=== PATIENT | male | born 1945 | race Caucasian/White ===

== ENCOUNTER 2017-07-13 07:47 | Inpatient (IN) | payer OTHER, MEDICARE ==
[~2017-07-13] VITALS: Ht 170.2 cm; Wt 63.5 kg
[~2017-07-13 07:47] MED LIST: CATAPRES0.2 MG PO; CLONIDINE HCL0.2 M1 PO; KEPPRA500 M1 PO; MAGNESIUM400 M1 PO; MELATONIN3 M4 PO; MULTIVITAMINS1 EAC9 PO; SEROQUEL50 M1 PO; TUMS PO; VITAMIN A10000 UNI1 PO
--- NOTE | 2017-07-13 07:55 | ED AMS/SEIZURE/WEAK/DIZZY ---
History of Present Illness General Chief Complaint: Seizure Stated Complaint: BIBA, ? SEIZURE Source: patient, old records, EMS Exam Limitations: clinical condition, poor historian Vital Signs & Intake/Output Vital Signs & Intake/Output Vital Signs Date Time Temp Pulse Resp B/P B/P Pulse O2 O2 Flow FiO2 Mean Ox Delivery Rate 07/15 1440 98.7 98 20 140/80 96 Room Air 07/15 1021 98.1 118 20 154/90 95 Room Air 07/15 0609 98.4 100 22 148/84 97 07/15 0216 98.1 89 22 156/89 93 07/14 2253 97.0 79 20 138/78 94 Room Air 07/14 2051 160/100 ED Intake and Output 07/15 0000 07/14 1200 Intake Total 1455 1120 Output Total 600 Balance 1455 520 Intake, IV 975 1000 Intake, Oral 480 120 Output, Urine 600 Allergies Coded Allergies: No Known Allergies (07/13/17) Reconcile Medications Clonidine (Catapres) 0.2 MG TABLET 0.2 MG PO BID HYPERTENSION (Reported) Famotidine (Pepcid AC) 10 MG TABLET PT UNSURE/ ?GI (Reported) Levetiracetam (Keppra) 500 MG TABLET 1 TAB PO BID SEIZURE .. Magnesium Oxide (Magnesium) (Unknown Strength) CAPSULE (Unknown Dose) PO DAILY SUPPLEMENT (Reported) Melatonin 3 MG TABLET 1 TAB PO QPM SLEEP (Reported) Quetiapine Fumarate (Seroquel) 50 MG TABLET 1 TAB PO BID PSYCH (Reported) [TUMS] 1 TAB PO BID GI (Reported) Triage Nurses Notes Reviewed? yes Onset: Abrupt Duration: minute(s): (30) Timing: single episode today Injury Environment: home Severity: moderate, severe No Modifying Factors: none Associated Symptoms: confusion, tremors HPI: This is a 72-year-old male extremely hard of hearing with documented history of alcohol withdrawal seizures, previously on keppra who presents with questionable seizure from home by EMS. According to EMS thinks he might of had a seizure. Patient states he doesn't really know where he has been examined because in Hospital he is unsure if he had a seizure. Patient doesn't know if he has history of seizures. He is unable to recall his last drink but states that he does drink. Past History Travel History Traveled to [place] past 21 day No Medical History Any Pertinent Medical History? see below for history Neurological: seizure (alcohol withdrawal related) Cardiovascular: hypertension Psychiatric: alcohol dependence History of MRSA: No History of VRE: No History of CDIFF: No Surgical History Surgical History: non-contributory Psychosocial History What is your primary language Czech Tobacco Use: Never used ETOH Use: alcoholic Family History Hx Contributory? No Review of Systems Review of Systems Constitutional: Reports: see HPI (SEIZURE, CONFUSED). Physical Exam Physical Exam General Appearance: well developed/nourished, alert, awake, anxious, moderate distress, severe distress, DISHEVELED Head: atraumatic Eyes: Bilateral: normal appearance, PERRL, EOMI. Ears, Nose, Throat: HARD OF HEARING Neck: normal inspection, supple, full range of motion Respiratory: normal breath sounds, chest non-tender, no respiratory distress Cardiovascular: tachycardia Peripheral Pulses: 2+ radial (R), 2+ radial (L) Gastrointestinal: normal bowel sounds, soft, non-tender Back: normal inspection, normal range of motion, vertebral tenderness Extremities: normal range of motion, VISIBLE HAND TREMORS Neurologic/Psych: no motor/sensory deficits, awake, alert, ORIENTED X 2 Skin: intact, normal color, warm/dry Core Measures ACS in differential dx? No CVA/TIA Diagnosis No Sepsis Present: No Sepsis Focused Exam Completed? No Progress Differential Diagnosis: ALCOHOL ABUSE, ALCOHOL WITHDRAWAL, SEIZURE, DT'S, [place], MEDICATION NON COMPLIANCE Plan of Care: Orders Procedure Date/time Status Patient Safety Monitor 07/15 1700 Active Restraint- Behavioral (Order) 07/15 1648 Active Restraint- Behavioral (Order) 07/15 1630 Active Restraint- Behavioral (Order) 07/15 1230 Active Restraint- Behavioral (Order) 07/15 0844 Active Restraint- Behavioral (Order) 07/15 UNK Active PSYCHIATRIC CONSULT 07/15 UNK Active Patient Safety Monitor 07/14 UNK Active Restraint- Medical 07/14 UNK Complete Current Medications Sig/Jessica Start time Last Medication Dose Stop Time Status Admin Lorazepam 1 MG Q8 07/15 1400 AC 07/15 (Ativan) 1403 Famotidine 20 MG DAILY 07/14 1000 AC 07/14 (Pepcid) 1056 Folic Acid 1 MG DAILY 07/14 1000 AC 07/15 (Folic Acid) 1120 Multivitamins 1 TAB DAILY 07/14 1000 AC 07/14 (Theragran Vitamins) 1057 Quetiapine Fumarate 50 MG BID 07/14 1000 AC 07/15 (SEROquel) 1120 Thiamine HCl 100 MG DAILY 07/14 1000 AC 07/14 (Vitamin B1) 1058 Clonidine 0.2 MG BID 07/13 2200 AC 07/15 (Catapres) 1117 Levetiracetam 500 MG BID 07/13 2200 AC 07/15 (Keppra) 1120 Enoxaparin Sodium 40 MG DAILY 07/13 1348 AC 07/15 (Lovenox) 1120 Acetaminophen 650 MG Q6P PRN 07/13 1345 AC 07/13 (Tylenol) 2119 Dextrose/Sodium 1,000 ML .Q8H 07/13 1345 AC 07/15 Chloride 1325 (D5-Normal Saline) Lorazepam 2 MG Q2P PRN 07/13 1115 AC (Ativan) Lorazepam 1 MG Q2P PRN 07/13 1115 AC (Ativan) Laboratory Tests 07/15/17 0736: CBC w Diff NO MAN DIFF REQ, RBC 4.36 L, MCV 93.2, MCH 31.3 H, MCHC 33.6, RDW 13.4, MPV 8.9, Gran % 71.5, Lymphocytes % 18.6 L, Monocytes % 7.1, Eosinophils % 2.4, Basophils % 0.4, Absolute Granulocytes 6.3, Absolute Lymphocytes 1.6, Absolute Monocytes 0.6, Absolute Eosinophils 0.2, Absolute Basophils 0 IV KEPPRA ADMINISTERED. ATIVAN, BANANA BAG. PATIETN WILL REQUIRE NEUROLOGY CONSULTATION, MONITOR FOR ALCOHOL WITHDRAWAL. D/W HOSPITAL FOR ADMISSION. Diagnostic Imaging: Viewed by Me: Radiology Read, CT Scan. Discussed w/RAD: Radiology Read, CT Scan. Radiology Impression: PATIENT: CYNDI NIXON PRESENT AGE: 72 PATIENT ACCOUNT NO: [id number] : 44 LOCATION: [facility] ORDERING PHYSICIAN: Charisma Saldaña MD SERVICE DATE: 07/13/17 EXAM TYPE: CAT - CT HEAD WO IV CONTRAST EXAMINATION: CT HEAD WITHOUT CONTRAST CLINICAL INFORMATION: Seizure, confused, rule out bleed. COMPARISON: 02/21/2017 TECHNIQUE : Contiguous axial imaging was performed from the skull base to vertex without intravenous administration of contrast. DLP: 642.74 mGy-cm FINDINGS: There is no evidence of acute intracranial hemorrhage or territorial infarction. No abnormal mass effect or midline shift is seen. Segura to white matter differentiation is well preserved. No extra-axial fluid collections are identified. The ventricles are normal in size. There is low attenuation in the subcortical and periventricular regions in keeping with small vessel ischemic change. The osseous structures and soft tissues are normal. The mastoid air cells and visualized portions of the paranasal sinuses are well aerated. Mild mucosal thickening is seen in the ethmoid and maxillary sinuses. IMPRESSION: No acute intracranial pathology. No interval change. DICTATED BY: Claudy Wu MD DATE/ TIME DICTATED:07/13/17901 PROPERTY ANALYST:CONRAD DATE/TIME TRANSCRIBED: 07/13/17901 CONFIDENTIAL, DO NOT COPY WITHOUT APPROPRIATE AUTHORIZATION. < Electronically signed in Other Vendor System> SIGNED BY: Claudy Wu MD 07/13/17912 CXR Impression: PATIENT: CYNDI NIXON PRESENT AGE: 72 PATIENT ACCOUNT NO: [id number] : 44 LOCATION: [facility] ORDERING PHYSICIAN: Charisma Saldaña MD SERVICE DATE: 07/13/17 EXAM TYPE: RAD - XRY -PORTABLE CHEST XRAY EXAMINATION: XR PORTABLE CHEST CLINICAL INFORMATION: Seizure COMPARISON: 02/21/2017 TECHNIQUE: Portable frontal view of the chest was obtained. FINDINGS: No significant abnormality is noted involving the heart, lungs, mediastinum, bony thorax or soft tissues. IMPRESSION: Unremarkable examination. DICTATED BY: Claudy Wu MD DATE/TIME DICTATED:07/13/17910 PROPERTY ANALYST:CONRAD DATE/TIME TRANSCRIBED:07/13/17910 CONFIDENTIAL, DO NOT COPY WITHOUT APPROPRIATE AUTHORIZATION. <Electronically signed in Other Vendor System> SIGNED BY: Claudy Wu MD 07/13/17914 Initial ED EKG: NSR Rhythm Strip: sinus tachycardia Departure Departure Time of Disposition: 1037 Disposition: STILL A PATIENT Condition: Stable Clinical Impression Primary Impression: Seizure Secondary Impressions: Lactic acidosis Referrals: Lalo Salas MD (PCP/Family) Departure Forms: Customer Survey General Discharge Information Admission Note Spoke With: Tigre Slaughter MD Documentation of Exam: Documentation of any treatments & extenuating circumstances including Concerns Regarding Discharge (functional status, medication knowledge or non-compliance, living conditions, etc.) that warrant an admission rather than observation: [ SEIZURE PRECAUTIONS, CIWA MONITORING, ATIVAN TAPER, IV KEPPRA, F/U KEPPRA LEVEL, CONSIDER NEURO CONSULTATION]
[2017-07-13 08:22] LABS: ABSOLUTE BASOPHIL COUNT 0 /CUMM (0.0-0.2); ABSOLUTE EOSINOPHIL COUNT 0 /CUMM (0.0-0.7); ABSOLUTE GRANULOCYTE CT 11.5 /CUMM (1.4-6.5); ABSOLUTE LYMPH COUNT 0.7 /CUMM (1.2-3.4); ABSOLUTE MONOCYTE COUNT 0.6 /CUMM (0.10-0.60); BASOPHIL % 0.1 % (0.0-2.0); EOSINOPHIL % 0.3 % (0-5); GRANULOCYTE % 89.9 % (42.2-75.2); HEMATOCRIT 44.6 % (42-52); MEAN CORPUSCULAR HGB 30.9 PG (27.0-31.0); MEAN CORPUSCULAR VOLUME 93.9 FL (80.0-94.0); MEAN PLATELET VOLUME 8.9 FL (7.4-10.4); PLATELET COUNT 158 /CUMM (130-400); RBC DISTRIBUTION WIDTH 13.5 % (11.5-14.5); RED BLOOD CELL CT 4.75 /CUMM (4.70-6.10); WHITE BLOOD CELL COUNT 12.8 /CUMM (4.8-10.8)
[2017-07-13 08:24] LABS: PTT 28 SEC (25-37)
[2017-07-13] MEDS ORDERED: PEPCID AC10 M2 (08:49)
--- NOTE | 2017-07-13 09:13 | CT SCAN REPORT ---
EXAMINATION: CT HEAD WITHOUT CONTRAST CLINICAL INFORMATION: Seizure, confused, rule out bleed. COMPARISON: 02/21/2017 TECHNIQUE: Contiguous axial imaging was performed from the skull base to vertex without intravenous administration of contrast. DLP: 642.74 mGy-cm FINDINGS: There is no evidence of acute intracranial hemorrhage or territorial infarction. No abnormal mass effect or midline shift is seen. Segura to white matter differentiation is well preserved. No extra-axial fluid collections are identified. The ventricles are normal in size. There is low attenuation in the subcortical and periventricular regions in keeping with small vessel ischemic change. The osseous structures and soft tissues are normal. The mastoid air cells and visualized portions of the paranasal sinuses are well aerated. Mild mucosal thickening is seen in the ethmoid and maxillary sinuses. IMPRESSION: No acute intracranial pathology. No interval change.
--- NOTE | 2017-07-13 09:15 | RADIOLOGY REPORT ---
EXAMINATION: XR PORTABLE CHEST CLINICAL INFORMATION: Seizure COMPARISON: 02/21/2017 TECHNIQUE: Portable frontal view of the chest was obtained. FINDINGS: No significant abnormality is noted involving the heart, lungs, mediastinum, bony thorax or soft tissues. IMPRESSION: Unremarkable examination.
[2017-07-13 10:26] VITALS: BP 151/77
--- NOTE | 2017-07-13 11:15 | History & Physical ---
See Addendum General Information and HPI MD Statement: I have seen and personally examined CYNDI NIXON and documented this H&P. The patient is a 72 year old M who presented with a patient stated chief complaint of [Seizures, AMS]. Source of Information: old records, ER Exam Limitations: unable to give history, confusion History of Present Illness: 72 years old male with past medical history of seizure, HTN, poor hearing, and alcoholism who was brought in by ambulance after an episode of seizure at home. This episode was witnessed by his . He has a hx of recurrent seizures attributed to ETOH in the past. Last episode that required hospitalization was in jan 2017. Unclear if patient has had any other episodes in between. Patient is altered and cannot provide a hx and is not with him at the time of this interview. It is unclear if he struck his head during the seizure or if he had loss of conciousness or loss of bladder/bowel function or foaming at the mouth at the time of the seizure. He is unable to recall his last drink but states that he does drink according to ER notes. Allergies/Medications Allergies: Coded Allergies: No Known Allergies (07/13/17) Home Med list Clonidine (Catapres) 0.2 MG TABLET 0.2 MG PO BID HYPERTENSION (Reported) Famotidine (Pepcid AC) 10 MG TABLET PT UNSURE/ ?GI (Reported) Levetiracetam (Keppra) 500 MG TABLET 1 TAB PO BID SEIZURE .. Magnesium Oxide (Magnesium) (Unknown Strength) CAPSULE (Unknown Dose) PO DAILY SUPPLEMENT (Reported) Melatonin 3 MG TABLET 1 TAB PO QPM SLEEP (Reported) Quetiapine Fumarate (Seroquel) 50 MG TABLET 1 TAB PO BID PSYCH (Reported) [TUMS] 1 TAB PO BID GI (Reported) Compliance With Home Meds: UNKNOWN Past History Travel History Traveled to [place] past 21 day No Medical History Neurological: seizure (alcohol withdrawal related) Cardiovascular: hypertension Psychiatric: alcohol dependence History of MRSA: No History of VRE: No History of CDIFF: No Surgical History Surgical History: non-contributory Past Family/Social History Psychosocial History ETOH Use: alcoholic Review of Systems Review of Systems Constitutional: Reports: no symptoms. Exam & Diagnostic Data Last 24 Hrs of Vital Signs/I&O Vital Signs Date Time Temp Pulse Resp B/P B/P Pulse O2 O2 Flow FiO2 Mean Ox Delivery Rate 02/11 1205 98.9 105 16 153/73 07/13 1203 98.9 105 16 153/73 91 Room Air 07/13 1027 98.6 76 15 151/77 98 Room Air Room Air 07/13 1026 98.6 76 20 151/77 07/13 0925 98.1 75 18 151/101 99 Room Air 07/13 0826 Room Air Room Air 07/13 0754 98.3 106 15 189/93 96 Room Air Room Air Intake & Output 07/13 1600 07/13 0800 07/13 0000 Intake Total Output Total Balance Patient 170 lb Weight Weight Estimated Measurement Method Assessment/Plan Assessment: 72 years old male with past medical history of seizure, HTN and alcoholism who was brought in by ambulance after an episode of seizure. This episode was witnessed by his . Last episode that required hospitalization was in jan 2017. Unclear if patient has had any other episodes in between. Also patient is altered and cannot proved a hx and is not with him at the time of the interview. It is unclear if he had loss of conciousness or loss of bladder/bowel function or foaming at the mouth. Assessment- Possible Alcohol related seizures r/o seizure disorder Lactic acidosis HTN Plan Admit to [facility] Resume his impt home meds including Keppra; he got a dose of IV keppra 1000mg in the ED Start Banana bag IV hydration with D51/2 NS at 125cc/hr Recheck lactic acid every 3 hrs till resolved CIWA protocol and ativan per CIWA MVI, thiamine, folate in am once patient is more awake and able to tolerate orally Seizure precautions at all times Obtain Neuro consult-called to Dr. Valentin for the AM Check EEG Social work consult in am Obtain records from PCP-Dr. Alicia about etiology of seizures Psych consult in am DVT ppx with Lovenox Full Code-Confirm code status with family in am; patient not able to tell what his wishes are at this time As Ranked By This Provider Problem List: 1. Seizure 2. Lactic acidosis Core Measures/Misc (02/16) Acute Coronary Syndrome ACS Diagnosis: No Congestive Heart Failure Congestive Heart Failure Diagnosis No Cerebrovascular Accident CVA/TIA Diagnosis: No VTE (View Protocol) VTE Risk Factors Age>40 No Mechanical VTE Prophylaxis d/t N/A MechProphylax Ordered No VTE Pharm Prophylaxis d/t NA PharmProphylax ordered Sepsis (View protocol) Sepsis Present: No Resident Review Statement Resident Statement: examined this patient Other Findings: see HPI
[2017-07-13 12:05] VITALS: BP 153/73
[2017-07-13 14:50] VITALS: BP 144/80
[2017-07-13 23:22] VITALS: BP 142/98
--- NOTE | 2017-07-14 00:52 | Admission Certification ---
Admission Certification Certification Statement - As attending physician, I certify that at the time of - admission, based on clinical presentation, severity of - symptoms, need for further diagnostic testing and - therapeutic interventions, and risk of adverse outcomes - without in-hospital treatment, in my clinical assessment, - this patient requires an acute hospital stay for a minimum - of two nights or longer. I have also considered psychsocial - factors such as support system, advanced age, financial - issues, cognitive issues, and failed out-patient treatments, - past re-admission history, safety of patient, and lack of - compliance as applicable. Specific rationale supporting this admission is: The patient presents s/p seizure at home that was presumed to be alcohol withdrawal related. Needs admit to give anti-seizure meds (Keppra, Ativan), detox protocol/CIWA, Social Service consult, seizure precautions, EEG, Neuro consult.
[2017-07-14 06:59] VITALS: BP 150/90
[2017-07-14 08:12] LABS: ABSOLUTE BASOPHIL COUNT 0 /CUMM (0.0-0.2); ABSOLUTE EOSINOPHIL COUNT 0.1 /CUMM (0.0-0.7); ABSOLUTE GRANULOCYTE CT 8.9 /CUMM (1.4-6.5); ABSOLUTE LYMPH COUNT 1.5 /CUMM (1.2-3.4); ABSOLUTE MONOCYTE COUNT 0.8 /CUMM (0.10-0.60); BASOPHIL % 0.1 % (0.0-2.0); EOSINOPHIL % 0.7 % (0-5); GRANULOCYTE % 78.3 % (42.2-75.2); HEMATOCRIT 43.3 % (42-52); MEAN CORPUSCULAR HGB CONC 33.1 G/DL (33.0-37.0); MEAN CORPUSCULAR VOLUME 93.8 FL (80.0-94.0); MEAN PLATELET VOLUME 9.6 FL (7.4-10.4); PLATELET COUNT 125 /CUMM (130-400); RBC DISTRIBUTION WIDTH 13.6 % (11.5-14.5); RED BLOOD CELL CT 4.62 /CUMM (4.70-6.10); WHITE BLOOD CELL COUNT 11.3 /CUMM (4.8-10.8)
--- NOTE | 2017-07-14 08:29 | PN- Housestaff ---
DonaldLakshmi Fletcher Young 07/14/17 0829: Subjective Follow-up For: Seizure Altered mental status Subjective: No overnight event. Patient had a 1-1 sitter at bedside. Patient is awake and alert but not following commands or answering questions in a meaningful manner. Review of Systems Constitutional: Reports: see HPI. Objective Last 24 Hrs of Vital Signs/I&O Vital Signs Date Time Temp Pulse Resp B/P B/P Pulse O2 O2 Flow FiO2 Mean Ox Delivery Rate 07/14 0659 97.4 86 18 150/90 97 Room Air 07/13 2322 100.6 103 20 142/98 93 Room Air 07/13 2304 98.1 07/13 2118 100.6 07/13 211 103 142/98 07/13 1450 98.2 87 20 144/80 94 Room Air 07/13 1205 98.9 105 16 153/73 07/13 1203 98.9 105 16 153/73 91 Room Air 07/13 1027 98.6 76 15 151/77 98 Room Air Room Air 07/13 1026 98.6 76 20 151/77 Intake & Output 07/14 1600 07/14 0800 07/14 0000 Intake Total 1120 120 Output Total 600 Balance 520 120 Intake, IV 1000 Intake, Oral 120 120 Output, Urine 600 Physical Exam General Appearance: Alert, No Acute Distress Current Medications: Current Medications Sig/Jessica Start time Last Medication Dose Route Stop Time Status Admin Acetaminophen 650 MG Q6P PRN 07/13 1345 AC 07/13 PO 2119 Clonidine 0.2 MG BID 07/13 2200 AC 07/13 PO 2119 Cyanocobalamin/ 1 BAG ONCE ONE 07/13 1345 CAN Thiamine/Pyridoxine IV 07/13 2144 Dextrose/Water 1,000 ML Cyanocobalamin/ 1 BAG ONCE ONE 07/13 0815 DC 07/13 Thiamine/Pyridoxine IV 07/13 1614 0900 Sodium Chloride 1,000 ML Dextrose/Sodium 1,000 ML .Q8H 07/13 1345 AC 07/14 Chloride IV 0525 Enoxaparin Sodium 40 MG DAILY 07/13 1348 AC 07/13 SC 1730 Famotidine 20 MG DAILY 07/14 1000 AC PO Folic Acid 1 MG DAILY 07/14 1000 DC PO 07/16 1001 Folic Acid 1 MG DAILY 07/14 1000 AC PO Levetiracetam 500 MG BID 07/13 2200 AC 07/13 PO 2117 Levetiracetam 1,000 MG ONCE ONE 07/13 1045 DC 07/13 N/A 1 UNIT IV 07/13 1059 1102 Lorazepam 1 MG Q6H 07/16 0000 DC PO 07/16 1201 Lorazepam 1.5 MG Q12H 07/15 0600 DC PO 07/15 1801 Lorazepam 1 MG Q12H 07/15 0000 DC PO 07/15 1201 Lorazepam 2 MG 0800 07/14 0800 CAN PO Lorazepam 1.5 MG Q6 07/14 0600 CAN PO 07/14 1801 Lorazepam 2 MG Q6PRN PRN 07/13 1715 DC IV Lorazepam 0 .STK-MED ONE 07/13 1305 DC .ROUTE Lorazepam 0 .STK-MED ONE 07/13 1216 DC .ROUTE Lorazepam 2 MG ONE ONE 07/13 1215 DC 07/13 IV 07/13 1216 1303 Lorazepam 2 MG Q6 07/13 1200 AC 07/14 PO 0525 Lorazepam 0 .STK-MED ONE 07/13 1119 DC PO Lorazepam 2 MG ONCE ONE 07/13 1115 DC PO 07/13 1116 Lorazepam 2 MG Q2P PRN 07/13 1115 AC IV Lorazepam 1 MG Q2P PRN 07/13 1115 AC IV Melatonin 3 MG QPM 07/13 2200 CAN PO Multivitamins 1 TAB DAILY 07/14 1000 DC PO Multivitamins 1 TAB DAILY 07/14 1000 AC PO Quetiapine Fumarate 50 MG BID 07/14 1000 AC PO Quetiapine Fumarate 50 MG BID 07/13 2200 DC PO Sodium Chloride 1,000 ML BOLUS ONE 07/13 0845 DC 07/13 IV 07/13 0944 0900 Thiamine HCl 100 MG DAILY 07/14 1000 DC PO 07/16 1001 Thiamine HCl 100 MG DAILY 07/14 1000 AC PO Last 24 Hrs of Lab/Cecilio Results Last 24 Hrs of Labs/Mics: Laboratory Tests 07/14/17 0630: Anion Gap 10, Estimated GFR > 60, BUN/Creatinine Ratio 11.3, CBC w Diff NO MAN DIFF REQ, RBC 4.62 L, MCV 93.8, MCH 31.0, MCHC 33.1, RDW 13.6, MPV 9.6, Gran % 78.3 H, Lymphocytes % 13.7 L, Monocytes % 7.2, Eosinophils % 0.7, Basophils % 0.1, Absolute Granulocytes 8.9 H, Absolute Lymphocytes 1.5, Absolute Monocytes 0.8 H, Absolute Eosinophils 0.1, Absolute Basophils 0 07/13/17 1830: Lactic Acid 1.6 07/13/17 1400: Lactic Acid Cancelled 07/13/17 1101: Urine Opiates Screen < 100.00, Methadone Screen < 40, Barbiturate Screen < 60, Ur Phencyclidine Scrn < 6.00, Amphetamines Screen < 100, U Benzodiazepines Scrn < 85, Urine Cocaine Screen < 50, Urine Cannabis Screen < 5.00, Urine Color YEL, Urine Clarity CLEAR, Urine pH 7.0, Ur Specific [place] 1.020, Urine Protein NEG, Urine Ketones NEG, Urine Nitrite NEG, Urine Bilirubin NEG, Urine Urobilinogen 0.2, Ur Leukocyte Esterase NEG, Ur Microscopic EXAM NOT REQUIRED, Urine Hemoglobin NEG, Urine Glucose NEG 07/13/17 1057: Lactic Acid 2.8 H, Levetiracetam Pending Assessment/Plan Assessment: Mr. Jiang is a 72 yo male with h/o ?seizures (?alcohol related), HTN, and EtoH abuse who was BIBA to [facility] after a witnessed seizure event at home by , with uncertainty of last drink as sami was a poor historian. However, alcohol level had been negative on admission. Patient denied headache, chest pain, dyspnea, abdominal pain on admission. Patient was admitted to [facility] in 01/2017 for similar seizure event and was sent home on Keppra. ER Course: VS: T 98.3, P 106-76, R 15, BP 189/93-151/77, PO 98% RA Physical exam unremarkable except Neuro: poor historian, oriented to place, no focal neuro deficits, however gait unsteady when attempting to ambulate to bathroom. Patient was admitted to general medicine for following management: #S/P Seizure w/ unlcear etiology: PCP is Dr. Salas. Patient had left AMA from last admission, questionably compliance with Keppra after last discharge. - Continue Keppra 500mg bid. Monitor keppra level - Pending Neuro consult - Pending EEG per Neuro - Fall/Seizure precautions. #EtOH Abuse- unclear amount of alcohol the patient drinks. ED indicated that he had been drinking, however could not recall his last drink. - Continue CIWA's protocol - Continue Ativan 2mg q6 PO. - Continue MVI, Folate, Thiamine protocol. - Pending Social Service consult. #HTN- With patient's current mental status, clonidine incompliance and possible clonidine withdrawal could not beunclear why patient is listed as being on Clonidine for BP control. Also unclear if the patient has been compliant. If he has been compliant would be concerned regarding potential clonidine withdrawal. - Continue Clonidine for now pending confirmation as below - Check pharmacy and Dr. Salas's records regarding use of this prescription as well as Keppra use. - Consider alternative anti-hypertensive as needed DVT PPX Lovenox + ALPS NPO Full Code Problem List: 1. Seizure Pain Ratin Pain Location: see AP Pain Goal: Remain pain free Pain Plan: see AP Tomorrow's Labs & Rationales: Jonah Freedman 07/14/17 1359: Attending MD Review Statement Attending Statement Attending MD Statement: examined this patient, discuss w/resident/PA/COPY SUPERVISOR, agreed w/resident/PA/COPY SUPERVISOR, discussed with family, reviewed EMR data (avail), discussed with nursing, discussed with case mgmt, reviewed images, amended to note Attending Assessment/Plan: Patient seen/examined bedside. Patient is post ictal and delirious. 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 Patient needs to follow up neuolrogy as outpatient. SW consult for insurance issues. cont current care..
--- NOTE | 2017-07-14 10:25 | Cons- Neurology ---
General Information and HPI Consulting Request Date of Consult: 07/14/17 Requested By: Jonah Monge MD Reason for Consult: ?seizures Source of Information: family, EMR Exam Limitations: unable to give history, not alert/orientated History of Present Illness: This is a 72-year-old man whose called 911 yesterday for the following reason: She states that yesterday when she walked into the living room he was sitting on the couch, then stood up and started heading toward the bathroom, but accidentally entered one of the bedrooms, then turned around and got to the bathroom. While he was in the air she heard a loud noise as if the toilet seat was falling abruptly. When she went in to the bathroom he was sitting on the toilet staring and verbally unresponsive. He was breathing heavily and started falling to one side with his legs extended outward. She lowered him to the floor and he then appeared to be "sleeping". At that point she called 911. Regarding the question of alcohol withdrawal, she states that other than friends occasionally "snake him out for drink ", there has been no heavy alcohol use to her knowledge for the past 4-5 years. Back then he was drinking about 1-2 gallons of vodka per week. At that 0.45 years ago he was admitted to [facility] with alcohol withdrawal and convulsive seizures, and was subsequently transferred to [place]. In September 2016 he was hospitalized at [place] with a confusional episode and underwent continuous EEG monitoring (results below). He was discharged on lacosamide 100 mg twice a day. He did not follow up at the [place] epilepsy clinic. According to his , she has limited mobility and has difficulty getting him to [place]. She states that the lacosamide was not renewed when they ran out of refills. Then in January 2017, he had a brief admission to [place] with another confusional episode. At that point he was placed on levetiracetam 500 mg twice a day. Again, the medication was not renewed when it was up for refill and he did not follow-up with a neurologist. His primary care physician is Dr. Salas. Allergies/Medications Allergies: Coded Allergies: No Known Allergies (07/13/17) Home Med List: Clonidine (Catapres) 0.2 MG TABLET 0.2 MG PO BID HYPERTENSION (Reported) Famotidine (Pepcid AC) 10 MG TABLET PT UNSURE/ ?GI (Reported) Levetiracetam (Keppra) 500 MG TABLET 1 TAB PO BID SEIZURE .. Magnesium Oxide (Magnesium) (Unknown Strength) CAPSULE (Unknown Dose) PO DAILY SUPPLEMENT (Reported) Melatonin 3 MG TABLET 1 TAB PO QPM SLEEP (Reported) Quetiapine Fumarate (Seroquel) 50 MG TABLET 1 TAB PO BID PSYCH (Reported) [TUMS] 1 TAB PO BID GI (Reported) Current Medications: Current Medications Sig/Jessica Start time Last Medication Dose Route Stop Time Status Admin Acetaminophen 650 MG Q6P PRN 07/13 1345 AC 07/13 PO 211 Clonidine 0.2 MG BID 07/13 2200 AC 07/13 PO 211 Cyanocobalamin/ 1 BAG ONCE ONE 07/13 1345 CAN Thiamine/Pyridoxine IV 07/13 2144 Dextrose/Water 1,000 ML Cyanocobalamin/ 1 BAG ONCE ONE 07/13 0815 DC 07/13 Thiamine/Pyridoxine IV 07/13 1614 0900 Sodium Chloride 1,000 ML Dextrose/Sodium 1,000 ML .Q8H 07/13 1345 AC 07/14 Chloride IV 0525 Enoxaparin Sodium 40 MG DAILY 07/13 1348 AC 07/13 SC 1730 Famotidine 20 MG DAILY 07/14 1000 AC PO Folic Acid 1 MG DAILY 07/14 1000 DC PO 07/16 1001 Folic Acid 1 MG DAILY 07/14 1000 AC PO Levetiracetam 500 MG BID 07/13 2200 AC 07/13 PO 2117 Levetiracetam 1,000 MG ONCE ONE 07/13 1045 DC 07/13 N/A 1 UNIT IV 07/13 1059 1102 Lorazepam 1 MG Q6H 07/16 0000 DC PO 07/16 1201 Lorazepam 1.5 MG Q12H 07/15 0600 DC PO 07/15 1801 Lorazepam 1 MG Q12H 07/15 0000 DC PO 07/15 1201 Lorazepam 2 MG 0800 07/14 0800 CAN PO Lorazepam 1.5 MG Q6 07/14 0600 CAN PO 07/14 1801 Lorazepam 2 MG Q6PRN PRN 07/13 1715 DC IV Lorazepam 0 .STK-MED ONE 07/13 1305 DC .ROUTE Lorazepam 0 .STK-MED ONE 07/13 1216 DC .ROUTE Lorazepam 2 MG ONE ONE 07/13 1215 DC 07/13 IV 07/13 1216 1303 Lorazepam 2 MG Q6 07/13 1200 AC 07/14 PO 0525 Lorazepam 0 .STK-MED ONE 07/13 1119 DC PO Lorazepam 2 MG ONCE ONE 07/13 1115 DC PO 07/13 1116 Lorazepam 2 MG Q2P PRN 07/13 1115 AC IV Lorazepam 1 MG Q2P PRN 07/13 1115 AC IV Melatonin 3 MG QPM 07/13 2200 CAN PO Multivitamins 1 TAB DAILY 07/14 1000 DC PO Multivitamins 1 TAB DAILY 07/14 1000 AC PO Quetiapine Fumarate 50 MG BID 07/14 1000 AC PO Quetiapine Fumarate 50 MG BID 07/13 2200 DC PO Thiamine HCl 100 MG DAILY 07/14 1000 DC PO 07/16 1001 Thiamine HCl 100 MG DAILY 07/14 1000 AC PO Review of Systems Review of Systems: Unobtainable from the patient. He is currently in a vest restraint and on one- to-one supervision. He denies headache, dizziness, visual changes, chest pain, palpitations, shortness of breath. He is hearing impaired but does not yet have hearing aids. He states he wears glasses but does not have them with him. Past History Travel History Traveled to [place] past 21 day No Medical History Blood Transfusion Hx: No Neurological: seizure (alcohol withdrawal related) EENT: [place] Cardiovascular: hypertension Respiratory: NONE Gastrointestinal: NONE Hepatic: NONE Renal: NONE Musculoskeletal: NONE Psychiatric: alcohol dependence Endocrine: NONE Blood Disorders: NONE Cancer(s): NONE TRAVELING SALES REPRESENTATIVE/Reproductive: NONE Surgical History Surgical History: non-contributory Psychosocial History Where Do You Live? Home Services at Home: None Smoking Status: Never Smoked ETOH Use: alcoholic (last drink January 2017 per ) Employment History Employment: Retired Profession/Employer: worked in various department stores Exam & Diagnostic Data Vital Signs and I&O Vital Signs Date Time Temp Pulse Resp B/P B/P Pulse O2 O2 Flow FiO2 Mean Ox Delivery Rate 07/14 658 97.4 86 18 150/90 97 Room Air 07/13 2321 100.6 103 20 142/98 93 Room Air 07/13 2303 98.1 07/13 2118 100.6 02/11 2119 103 142/98 07/13 1450 98.2 87 20 144/80 94 Room Air 07/13 1205 98.9 105 16 153/73 07/13 1203 98.9 105 16 153/73 91 Room Air 07/13 1027 98.6 76 15 151/77 98 Room Air Room Air 07/13 1026 98.6 76 20 151/77 Intake & Output 07/14 1600 07/14 0800 07/14 0000 Intake Total 1120 120 Output Total 600 Balance 520 120 Intake, IV 1000 Intake, Oral 120 120 Output, Urine 600 Physical Exam: PHYSICAL EXAMINATION: nl = normal NT or blank = not tested GENERAL Appearance: Unkempt appearance, pleasant, cooperative Head: nl Eyes: nl ENT: nl Neck: nl Carotids: nl Lungs: nl Heart: nl Extremities: nl NEUROLOGIC MENTAL STATUS Level of consciousness: nl Orientation: states year "1800, does not know the date date or month; knows "hospital", but not which one he is in. He cannot recall the name of the current [place] president. Attention / Concentration: Impaired Fund of Knowledge: nl Speech / Language: Makes occasional phonemic paraphasic errors in conversation, when reading, and when naming objects NEUROLOGIC CRANIAL NERVES I: Olfaction: NT II: Optic nerves: nl Visual hcanel: nl III: Pupils: nl Levator palpebrae: nl III, IV, : Ocular alignment: nl Extraocular motility: nl Pursuits/ saccades: nl V: Facial sensation: nl Masseter/Pterygoids: nl VII: Facial Motor: nl VIII: Hearing (finger rub): nl IX, X: Uvula and palate: nl XI: SCM, Upper trap.: nl XII: Tongue: nl MOTOR / NEUROMUSCULAR Bulk: nl Tone: nl Strength: nl Rapid alternating movements: nl Fine motor movements: nl Abnormal / involuntary movements: none CEREBELLAR / COORDINATION: intact SENSATION: intact to light touch and vibration DTR's symmetrically trace to absent PLANTARS: flexor GAIT: Not tested Last 48 Hours of Lab Results: Laboratory Tests 07/14 07/13 07/13 0630 1830 1400 Chemistry Sodium (137 - 145 mmol/L) 142 Potassium (3.5 - 5.1 mmol/L) 3.6 Chloride (98 - 107 mmol/L) 106 Carbon Dioxide (22 - 30 mmol/L) 26 Anion Gap (5 - 16) 10 BUN (9 - 20 mg/dL) 9 Creatinine (0.7 - 1.2 mg/dL) 0.8 Estimated GFR (>60 ml/min) > 60 BUN/Creatinine Ratio (7 - 25 %) 11.3 Lactic Acid (0.7 - 2.1 mmol/L) 1.6 Cancelled Hematology CBC w Diff NO MAN DIFF REQ WBC (4.8 - 10.8 /CUMM) 11.3 H RBC (4.70 - 6.10 /CUMM) 4.62 L Hgb (14.0 - 18.0 G/DL) 14.3 Hct (42 - 52 %) 43.3 MCV (80.0 - 94.0 FL) 93.8 MCH (27.0 - 31.0 PG) 31.0 MCHC (33.0 - 37.0 G/DL) 33.1 RDW (11.5 - 14.5 %) 13.6 Plt Count (130 - 400 /CUMM) 125 L MPV (7.4 - 10.4 FL) 9.6 Gran % (42.2 - 75.2 %) 78.3 H Lymphocytes % (20.5 - 51.1 %) 13.7 L Monocytes % (1.7 - 9.3 %) 7.2 Eosinophils % (0 - 5 %) 0.7 Basophils % (0.0 - 2.0 %) 0.1 Absolute Granulocytes (1.4 - 6.5 /CUMM) 8.9 H Absolute Lymphocytes (1.2 - 3.4 /CUMM) 1.5 Absolute Monocytes (0.10 - 0.60 /CUMM) 0.8 H Absolute Eosinophils (0.0 - 0.7 /CUMM) 0.1 Absolute Basophils (0.0 - 0.2 /CUMM) 0 07/13 07/13 07/13 1101 1057 0844 Chemistry Sodium (137 - 145 mmol/L) 143 Potassium (3.5 - 5.1 mmol/L) 4.0 Chloride (98 - 107 mmol/L) 106 Carbon Dioxide (22 - 30 mmol/L) 28 Anion Gap (5 - 16) 9 BUN (9 - 20 mg/dL) 13 Creatinine (0.7 - 1.2 mg/dL) 0.9 Estimated GFR (>60 ml/min) > 60 BUN/Creatinine Ratio (7 - 25 %) 14.4 Glucose (65 - 99 mg/dL) 109 H Lactic Acid (0.7 - 2.1 mmol/L) 2.8 H 3.0 H Calcium (8.4 - 10.2 mg/dL) 10.3 H Magnesium (1.6 - 2.3 mg/dL) 1.7 Total Bilirubin (0.2 - 1.3 mg/dL) 0.4 AST (17 - 59 U/L) 18 ALT (21 - 72 U/L) 28 Alkaline Phosphatase (< 127 U/L) 65 Creatine Kinase (55 - 170 U/L) 50 L Total Protein (6.3 - 8.2 g/dL) 6.5 Albumin (3.5 - 5.0 g/dL) 3.9 Globulin (1.9 - 4.2 gm/dL) 2.6 Albumin/Globulin Ratio (1.1 - 2.2 %) 1.5 Lipase (23 - 300 U/L) 42 Prolactin (3.7 - 17.9 ng/mL) 11.1 Toxicology Urine Opiates Screen (>2000 NG/ML) < 100.00 Methadone Screen (>300 NG/ML) < 40 Barbiturate Screen (>200 NG/ML) < 60 Levetiracetam Pending Ur Phencyclidine Scrn (>25 NG/ML) < 6.00 Amphetamines Screen (>1000 NG/ML) < 100 U Benzodiazepines Scrn (>200 NG/ML) < 85 Urine Cocaine Screen (>300 NG/ML) < 50 Urine Cannabis Screen (>50 NG/ML) < 5.00 Serum Alcohol (<10 MG/DL) < 10.0 Urines Urine Color (YEL,AMB,STR) YEL Urine Clarity (CLEAR) CLEAR Urine pH (5.0 - 8.0) 7.0 Ur Specific [place] (1.001 - 1.035) 1.020 Urine Protein (NEG,<30 MG/DL) NEG Urine Ketones (NEG) NEG Urine Nitrite (NEG) NEG Urine Bilirubin (NEG) NEG Urine Urobilinogen (0.1 - 1.0 EU/dl) 0.2 Ur Leukocyte Esterase (NEG) NEG Ur Microscopic EXAM NOT REQUIRED Urine Hemoglobin (NEG) NEG Urine Glucose (N MG/DL) NEG 07/13 0807 Coagulation PT (9.4 - 12.5 SEC) 11.0 INR (0.90 - 1.17) 1.05 APTT (25 - 37 SEC) 28 Hematology CBC w Diff MAN DIFF ORDERED WBC (4.8 - 10.8 /CUMM) 12.8 H RBC (4.70 - 6.10 /CUMM) 4.75 Hgb (14.0 - 18.0 G/DL) 14.7 Hct (42 - 52 %) 44.6 MCV (80.0 - 94.0 FL) 93.9 MCH (27.0 - 31.0 PG) 30.9 MCHC (33.0 - 37.0 G/DL) 33.0 RDW (11.5 - 14.5 %) 13.5 Plt Count (130 - 400 /CUMM) 158 MPV (7.4 - 10.4 FL) 8.9 Gran % (42.2 - 75.2 %) 89.9 H Lymphocytes % (20.5 - 51.1 %) 5.4 L Monocytes % (1.7 - 9.3 %) 4.3 Eosinophils % (0 - 5 %) 0.3 Basophils % (0.0 - 2.0 %) 0.1 Absolute Granulocytes (1.4 - 6.5 /CUMM) 11.5 H Absolute Lymphocytes (1.2 - 3.4 /CUMM) 0.7 L Absolute Monocytes (0.10 - 0.60 /CUMM) 0.6 Absolute Eosinophils (0.0 - 0.7 /CUMM) 0 Absolute Basophils (0.0 - 0.2 /CUMM) 0 Platelet Estimate (ADEQUATE) ADEQUATE Normocytic RBCs VERIFIED Normochromic RBCs VERIFIED Imaging/Other Studies: ORDERING PHYSICIAN: Charisma Saldaña MD SERVICE DATE: 07/13/17 EXAM TYPE: CAT - CT HEAD WO IV CONTRAST EXAMINATION: CT HEAD WITHOUT CONTRAST CLINICAL INFORMATION: Seizure, confused, rule out bleed. COMPARISON: 02/21/2017 TECHNIQUE: Contiguous axial imaging was performed from the skull base to vertex without intravenous administration of contrast. DLP: 642.74 mGy-cm FINDINGS: There is no evidence of acute intracranial hemorrhage or territorial infarction. No abnormal mass effect or midline shift is seen. Segura to white matter differentiation is well preserved. No extra-axial fluid collections are identified. The ventricles are normal in size. There is low attenuation in the subcortical and periventricular regions in keeping with small vessel ischemic change. The osseous structures and soft tissues are normal. The mastoid air cells and visualized portions of the paranasal sinuses are well aerated. Mild mucosal thickening is seen in the ethmoid and maxillary sinuses. IMPRESSION: No acute intracranial pathology. No interval change. DICTATED BY: Claudy Wu MD DATE/TIME DICTATED:07/13/17901 SECRETARY RECEPTIONIST:CONRAD DATE/TIME TRANSCRIBED:07/13/17901 CONFIDENTIAL, DO NOT COPY WITHOUT APPROPRIATE AUTHORIZATION. <Electronically signed in Other Vendor System> SIGNED BY: Claudy Wu MD 07/13/17912 MRI brain Jan 2017: - No mass lesion, acute infarction, or abnormal intracranial enhancement. - Decreased size of the left hippocampal head, body, and tail with diffuse elevated T2 signal compared with the right. Elevated T2 signal is also present within the amygdaloid body without volume loss. 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 Although elevated signal within the limbic system can be seen in encephalitis the hippocampal volume loss argues against this. There are no findings specific for Wernicke's encephalopathy. 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 - Moderate small vessel ischemic changes. [place] CONTINUOUS EEG SEPTEMBER 2016 [facility] Inpatient Continuous EEG Report Patient Information Patient name: Donnell Jiang Procedure type: Continuous ICU (inpt, video), 12-24 hrs ~~~Billing code(s): 38483 Date of : 1945 Gender: Male Weight (kg): 78 Patient location: Neurological ICU Referring MD: María OLIVIA Current Reporting Day Start: 10/26/2016 01:49 ~~~End: 10/27/2016 09:21~~~~~~Day 1 of monitoring session, 1 days since hospital admission, 1 days since ICU admission Interruptions Start: 10/26/2016 20:05 ~~~End: 10/27/2016 03:20 ~~~~Reason: MRI Fellow: Lynette Mcleod MD Attending: Sherri Swartz MD EEG Technical Information EEG channels #: 21 Electrode type: Disk, plastic Adhesive type: Paste Video recorded: Yes Patient Clinical Information Acute clinical seizures prior to monitoring: Clinical seizures ~~~- unknown semiology, possibly convulsions ~~~~When: Other (specify) ~~~~- pre- and inhospital Chronic medical conditions: Hypertension, seizures, EtOH, HTN Primary neurological diagnosis: Seizure ICD9 code(s): G40.89, G40.909, G40.89 Primary indication for monitoring: Diagnosis of non-convulsive seizures Other indications for monitoring: Monitor seizure tx Other clinical details: 71yo with EtoH, seizures in the context of EtOH WD, HTN, admitted on 10/25 with bizarre behavior followed by LOC with convulsive movements. EMS witnessed further convulsions and administered lorazepam. At OSH, confused and agitated, received further doses of lorazepam, LEV1g, PHT 1.5g. Intubated and started on propofol. CSF w 1W. MRI with resolution of prior L hippocampus restriction seen in past images. EEG Description Epoch # 1~~~~~Start: 10/26/2016 01:49 ~~~~End: 10/27/2016 11:00 Pertinent Medications and Treatments Anti-seizure medications administered: Lacosamide 100mg BID Other treatments administered: No other seizure treatments Sedatives administered: Dexmedetomidine 0.7mcg/kg/h paused at 4PM, Midazolam 7.5 -8mg/h ->0 @ 9 am, Propofol 5-10mcg/kg/min paused at 4PM, then resumed at 30- 40mcg/kg/min Clinical Details Intubated: Yes Mental status: Unknown Focal neurological deficits: Unknown Rhythmic or Periodic Patterns Rhythmic or periodic patterns: No Background Symmetry: Symmetric Posterior dominant rhythm: Yes ~~~Frequency: 7 Predominant background frequency: Beta Superimposed background frequency: Delta, Theta, Alpha Voltage - left hemisphere: Low (most activity<20 V) ~~~~Voltage - right hemisphere: Low (most activity <20 V) Variability: Yes Reactivity to stimulation: Yes ~~~Type of stimulus: tactile Continuity: Discontinuous (10-49% of epoch) ~~~Typical burst duration (sec): 8 ~ ~~~Typical inter-burst interval (sec): 3 ~~~~Maximum inter-burst interval (sec): 4 ~~~~Inter-burst amplitude: Suppression (<10 V) ~~~~Sharpest component of burst: Blunt ~~~~Highly epileptiform bursts present: Absent AP Gradient: Absent Background details: Suppression ~20% (range 0-+90%). During quiet state, diffuse attenuation and increased suppression percetage reaching 80+, during maximal arousal continuous background of low voltage fast admixed with polymorphic delta is seen and occasional fragments of 7 Hz PDR is seen. Sleep stages/types: Stage 2 ~~~Sleep spindles: Abnormal/asymmetric ~~~~- better formed over right hemisphere EKG results: Normal sinus rhythm Digital Analysis Digital analysis performed: Yes ~~~Location used: Both Digital Analysis Methodology: Quantitative EEG analysis and trending were performed during acquisition, including alpha/delta ratio, amplitide, compressed spectral array, rhythmicity, symmetry. ~~~~~Additional calculations were added as needed. These data were displayed at the bedside in real-time and used during remote review in order to screen for seizures, ischemia, other changes in brain function, and long-term trends. Seizures reliably detected by digital analysis: Absent Symmetry determined by digital analysis: Symmetric ~~~Detected by: Compressed spectral array, Rhythmicity Vasospasm reliably detected by digital analysis: Not assessed Impression from digital analysis: Low power. No evolving trends. Clinical correlation from digital analysis: as above Summary Impression Attending impression: Disorganized, discontinuous, but reactive background of low voltage fast activity with diffuse attenuation suggesting moderate diffuse or multifocal dysfunction. Some or all dysfunction may be related to sedating medications however when patient is maximally aroused, an attenuated mild to moderate generalized slowing background emerges despite sedation.No seizures or epileptiform findings. Clinical Correlation As above Significant changes compared to prior recording Improved maximal aroused state compared to prior recording in 05/06/2015 I, Dr. Sherri Swartz, have reviewed this study in full and agree with the fellow' s, Lynette Mcleod's, findings above which I reviewed and edited. This report represents my personal impression. Signed by fellow/resident Dr. Lynette OCHOA at 06:55 on 10/26/[address] 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 Prior MRI shows a hippocampal abnormality When he was med adherent, according to his he had no confusional episodes Recommendations: Continue levetiracetam 500 mg twice a day Obtain an EEG Outpatient neurology follow-up is imperative. Apparently there are some insurance issues, in that the patient is covered under Medicare A but not Medicare B. I would suggest social service/continuing care provide some assistance in facilitating this process Consult Acknowledgment - Thank you for your consult request.
[2017-07-14 11:38] VITALS: BP 160/90
[2017-07-14 15:29] VITALS: BP 120/70
--- NOTE | 2017-07-14 20:54 | ELECTROENCEPHALOGRAM REPORT ---
Electroencephalogram Report Electroencephalogram Results Date of service: 07/14/17 Attending MD: Jonah Monge MD Server Systems Administrator: Danny Bneavides EEG Number: [id number] Test Utilizes: 10-20 system, modified 13 lead 10 channel digital recording Pertinent Hx/Physical/Neuro Findings/Clin Diagnosis: Altered mental status, r/o seizures. Patient was described as uncooperative and moving throughout the recording. Inpatient Medications: Current Medications Sig/Jessica Start time Last Medication Dose Route Stop Time Status Admin Acetaminophen 650 MG Q6P PRN 07/13 1345 AC 07/13 PO 2119 Clonidine 0.2 MG BID 07/13 2200 AC 07/14 PO 1134 Dextrose/Sodium 1,000 ML .Q8H 07/13 1345 AC 07/14 Chloride IV 1345 Enoxaparin Sodium 40 MG DAILY 07/13 1348 AC 07/14 SC 1057 Famotidine 20 MG DAILY 07/14 1000 AC 07/14 PO 1056 Folic Acid 1 MG DAILY 07/14 1000 DC PO 07/16 1001 Folic Acid 1 MG DAILY 07/14 1000 AC 07/14 PO 1056 Levetiracetam 500 MG BID 07/13 2200 AC 07/14 PO 1056 Lorazepam 1 MG Q6H 07/16 0000 DC PO 07/16 1201 Lorazepam 1.5 MG Q12H 07/15 0600 DC PO 07/15 1801 Lorazepam 1 MG Q12H 07/15 0000 DC PO 07/15 1201 Lorazepam 1.5 MG Q8 07/14 2200 AC PO Lorazepam 1 MG ONE ONE 07/14 1400 CAN PO 07/14 1401 Lorazepam 1 MG ONE ONE 07/14 1400 DC 07/14 IV 07/14 1401 1515 Lorazepam 2 MG Q6 07/13 1200 DC 07/14 PO 1134 Lorazepam 2 MG Q2P PRN 07/13 1115 AC IV Lorazepam 1 MG Q2P PRN 07/13 1115 AC IV Multivitamins 1 TAB DAILY 07/14 1000 DC PO Multivitamins 1 TAB DAILY 07/14 1000 AC 07/14 PO 1057 Quetiapine Fumarate 50 MG BID 07/14 1000 AC 07/14 PO 1056 Thiamine HCl 100 MG DAILY 07/14 1000 DC PO 07/16 1001 Thiamine HCl 100 MG DAILY 07/14 1000 AC 07/14 PO 1058 Interpretation: The background where visible consists primarily of low voltage beta activity and intermittent irregular 8-9 Hz posterior alpha as well as occasional intermixed theta. Frequent high amplitude muscle artifacts obscure much of the recording which was limited to just less than 5 minutes. Activation procedures could not be performed. Impression: Very limited study due to inability to cooperate and muscle/movement artifact but grossly normal background where visible. No evident epileptiform abnormalities. If clinical suspicion of seizures is high a repeat recording with sedation should be considered.
[2017-07-14 22:53] VITALS: BP 138/78
[2017-07-15 02:16] VITALS: BP 156/89
[2017-07-15 06:09] VITALS: BP 148/84
--- NOTE | 2017-07-15 07:44 | PN- Housestaff ---
See Addendum Subjective Follow-up For: Seizure Altered mental status Subjective: No overnight event. Patient had a 1-1 sitter at bedside. Patient was still delirius but not following commands or answering questions in a meaningful manner. Review of Systems Constitutional: Reports: see HPI. Objective Last 24 Hrs of Vital Signs/I&O Vital Signs Date Time Temp Pulse Resp B/P B/P Pulse O2 O2 Flow FiO2 Mean Ox Delivery Rate 07/15 1021 98.1 118 20 154/90 95 Room Air 07/15 0609 98.4 100 22 148/84 97 07/15 0216 98.1 89 22 156/89 93 07/14 2253 97.0 79 20 138/78 94 Room Air 07/14 2051 160/100 07/14 1529 98.2 86 20 120/70 91 Nasal Cannula Intake & Output 07/15 1600 07/15 0800 07/15 0000 Intake Total 1060 465 Output Total 525 Balance 535 465 Intake, IV 1000 225 Intake, Oral 60 240 Output, Urine 525 Physical Exam General Appearance: delirius Current Medications: Current Medications Sig/Jessica Start time Last Medication Dose Route Stop Time Status Admin Acetaminophen 650 MG Q6P PRN 07/13 1345 AC 07/13 PO 2119 Clonidine 0.2 MG BID 07/13 2200 AC 07/14 PO 2051 Dextrose/Sodium 1,000 ML .Q8H 07/13 1345 AC 07/15 Chloride IV 0516 Enoxaparin Sodium 40 MG DAILY 07/13 1348 AC 07/14 SC 1057 Famotidine 20 MG DAILY 07/14 1000 AC 07/14 PO 1056 Folic Acid 1 MG DAILY 07/14 1000 AC 07/14 PO 1056 Levetiracetam 500 MG BID 07/13 2200 AC 07/14 PO 2049 Lorazepam 1 MG Q6H 07/16 0000 DC PO 07/16 1201 Lorazepam 1.5 MG Q12H 07/15 0600 DC PO 07/15 1801 Lorazepam 1.5 MG ONCE ONE 07/15 0545 DC 07/15 IV 07/15 0546 0543 Lorazepam 1 MG Q12H 07/15 0000 DC PO 07/15 1201 Lorazepam 1.5 MG Q8 07/14 2200 AC 07/14 PO 2049 Lorazepam 1 MG ONE ONE 07/14 1400 CAN PO 07/14 1401 Lorazepam 1 MG ONE ONE 07/14 1400 DC 07/14 IV 07/14 1401 1515 Lorazepam 2 MG Q6 07/13 1200 DC 07/14 PO 1134 Lorazepam 2 MG Q2P PRN 07/13 1115 AC IV Lorazepam 1 MG Q2P PRN 07/13 1115 AC IV Multivitamins 1 TAB DAILY 07/14 1000 AC 07/14 PO 1057 Quetiapine Fumarate 50 MG BID 07/14 1000 AC 07/14 PO 2049 Thiamine HCl 100 MG DAILY 07/14 1000 AC 07/14 PO 1058 Last 24 Hrs of Lab/Cecilio Results Last 24 Hrs of Labs/Mics: Laboratory Tests 07/15/17 0736: CBC w Diff NO MAN DIFF REQ, RBC 4.36 L, MCV 93.2, MCH 31.3 H, MCHC 33.6, RDW 13.4, MPV 8.9, Gran % 71.5, Lymphocytes % 18.6 L, Monocytes % 7.1, Eosinophils % 2.4, Basophils % 0.4, Absolute Granulocytes 6.3, Absolute Lymphocytes 1.6, Absolute Monocytes 0.6, Absolute Eosinophils 0.2, Absolute Basophils 0 Assessment/Plan Assessment: Mr. Jiang is a 72 yo male with h/o ?seizures (?alcohol related), HTN, and EtoH abuse who was BIBA to [facility] after a witnessed seizure event at home by , with uncertainty of last drink as patijovannyn was a poor historian. However, alcohol level had been negative on admission. Patient denied headache, chest pain, dyspnea, abdominal pain on admission. Patient was admitted to [facility] in 01/2017 for similar seizure event and was sent home on Keppra. ER Course: VS: T 98.3, P 106-76, R 15, BP 189/93-151/77, PO 98% RA Physical exam unremarkable except Neuro: poor historian, oriented to place, no focal neuro deficits, however gait unsteady when attempting to ambulate to bathroom. Patient was admitted to general medicine for following management: #S/P Seizure w/ unlcear etiology: PCP is Dr. Salas. Patient had left AMA from last admission, questionably compliance with Keppra after last discharge. - Continue Keppra 500mg bid. Monitor keppra level - Pending Neuro f/u - EEG was limited study due to patient's combative behavior. however, No evident epileptiform abnormalities. If clinical suspicion of seizures is high a repeat recording with sedation should be considered. - Fall/Seizure precautions. #EtOH Abuse- unclear amount of alcohol the patient drinks. ED indicated that he had been drinking, however could not recall his last drink. - Continue CIWA's protocol - Continue Ativan 1.5mg q8 PO. - Continue MVI, Folate, Thiamine protocol. - Pending Social Service consult. #HTN- With patient's current mental status, clonidine incompliance and possible clonidine withdrawal could not beunclear why patient is listed as being on Clonidine for BP control. Also unclear if the patient has been compliant. If he has been compliant would be concerned regarding potential clonidine withdrawal. - Continue Clonidine for now, however, patient refused meds this mrning. - Dr. Salas's record had no recent Keppra use on latest visit, possibly due to patient's incompliant. - Consider alternative anti-hypertensive as needed DVT PPX Lovenox + ALPS NPO Full Code Problem List: 1. Seizure Pain Ratin Pain Location: NA Pain Goal: Remain pain free Pain Plan: see AP Tomorrow's Labs & Rationales: NA
[2017-07-15 08:31] LABS: ABSOLUTE BASOPHIL COUNT 0 /CUMM (0.0-0.2); ABSOLUTE EOSINOPHIL COUNT 0.2 /CUMM (0.0-0.7); ABSOLUTE GRANULOCYTE CT 6.3 /CUMM (1.4-6.5); ABSOLUTE LYMPH COUNT 1.6 /CUMM (1.2-3.4); ABSOLUTE MONOCYTE COUNT 0.6 /CUMM (0.10-0.60); BASOPHIL % 0.4 % (0.0-2.0); EOSINOPHIL % 2.4 % (0-5); GRANULOCYTE % 71.5 % (42.2-75.2); HEMATOCRIT 40.7 % (42-52); MEAN CORPUSCULAR HGB 31.3 PG (27.0-31.0); MEAN CORPUSCULAR HGB CONC 33.6 G/DL (33.0-37.0); MEAN CORPUSCULAR VOLUME 93.2 FL (80.0-94.0); MEAN PLATELET VOLUME 8.9 FL (7.4-10.4); PLATELET COUNT 115 /CUMM (130-400); RBC DISTRIBUTION WIDTH 13.4 % (11.5-14.5); RED BLOOD CELL CT 4.36 /CUMM (4.70-6.10); WHITE BLOOD CELL COUNT 8.9 /CUMM (4.8-10.8)
[2017-07-15 10:21] VITALS: BP 154/90
[2017-07-15 14:40] VITALS: BP 140/80
--- NOTE | 2017-07-15 18:10 | PN- Neurology ---
Subjective Subjective: 'wants to go home' Review of Systems: denies headache Objective Vital Signs and I&Os Vital Signs Date Time Temp Pulse Resp B/P B/P Pulse O2 O2 Flow FiO2 Mean Ox Delivery Rate 07/15 1440 98.7 98 20 140/80 96 Room Air 07/15 1021 98.1 118 20 154/90 95 Room Air 07/15 0609 98.4 100 22 148/84 97 07/15 0216 98.1 89 22 156/89 93 07/14 2253 97.0 79 20 138/78 94 Room Air 07/14 2051 160/100 Intake & Output 07/15 1600 07/15 0800 07/15 0000 07/14 1600 07/14 0800 07/14 0000 Intake Total 1060 979 006 3994 120 Output Total 525 600 Balance 535 465 990 520 120 Intake, IV 1000 388 820 9317 Intake, Oral 60 240 240 120 120 Output, Urine 525 600 Physical Exam: confused in restraints EOM full no facial weakness moves extren\mities equally Current Medications: Current Medications Sig/Jessica Start time Last Medication Dose Route Stop Time Status Admin Acetaminophen 650 MG Q6P PRN 07/13 1345 AC 07/13 PO 2119 Clonidine 0.2 MG BID 07/13 2200 AC 07/15 PO 1117 Dextrose/Sodium 1,000 ML .Q8H 07/13 1345 AC 07/15 Chloride IV 1325 Enoxaparin Sodium 40 MG DAILY 07/13 1348 AC 07/15 SC 1120 Famotidine 20 MG DAILY 07/14 1000 AC 07/14 PO 1056 Folic Acid 1 MG DAILY 07/14 1000 AC 07/15 PO 1120 Levetiracetam 500 MG BID 07/13 2200 AC 07/15 PO 1120 Lorazepam 1 MG Q6H 07/16 0000 DC PO 07/16 1201 Lorazepam 1 MG Q8 07/15 1400 AC 07/15 IV 1403 Lorazepam 1.5 MG Q12H 07/15 0600 DC PO 07/15 1801 Lorazepam 1.5 MG ONCE ONE 07/15 0545 DC 07/15 IV 07/15 0546 0543 Lorazepam 1 MG Q12H 07/15 0000 DC PO 07/15 1201 Lorazepam 1.5 MG Q8 07/14 2200 DC 07/14 PO 2049 Lorazepam 2 MG Q2P PRN 07/13 1115 AC IV Lorazepam 1 MG Q2P PRN 07/13 1115 IV Multivitamins 1 TAB DAILY 07/14 1000 AC 07/14 PO 1057 Quetiapine Fumarate 50 MG BID 07/14 1000 AC 07/15 PO 1120 Thiamine HCl 100 MG DAILY 07/14 1000 AC 07/14 PO 1058 Results Last 24 Hours of Lab Results: Laboratory Tests 07/15 0736 Hematology CBC w Diff NO MAN DIFF REQ WBC (4.8 - 10.8 /CUMM) 8.9 RBC (4.70 - 6.10 /CUMM) 4.36 L Hgb (14.0 - 18.0 G/DL) 13.7 L Hct (42 - 52 %) 40.7 L MCV (80.0 - 94.0 FL) 93.2 MCH (27.0 - 31.0 PG) 31.3 H MCHC (33.0 - 37.0 G/DL) 33.6 RDW (11.5 - 14.5 %) 13.4 Plt Count (130 - 400 /CUMM) 115 L MPV (7.4 - 10.4 FL) 8.9 Gran % (42.2 - 75.2 %) 71.5 Lymphocytes % (20.5 - 51.1 %) 18.6 L Monocytes % (1.7 - 9.3 %) 7.1 Eosinophils % (0 - 5 %) 2.4 Basophils % (0.0 - 2.0 %) 0.4 Absolute Granulocytes (1.4 - 6.5 /CUMM) 6.3 Absolute Lymphocytes (1.2 - 3.4 /CUMM) 1.6 Absolute Monocytes (0.10 - 0.60 /CUMM) 0.6 Absolute Eosinophils (0.0 - 0.7 /CUMM) 0.2 Absolute Basophils (0.0 - 0.2 /CUMM) 0 Recent Imaging Studies: CT brain: IMPRESSION: No acute intracranial pathology. No interval change. EEG Impression: Very limited study due to inability to cooperate and muscle/movement artifact but grossly normal background where visible. No evident epileptiform abnormalities. If clinical suspicion of seizures is high a repeat recording with sedation should be considered. Assessment/Plan Assessment: confusional state, non focal Plan: if not done, TSH, serum ammonia, blood cultures
[2017-07-15 23:32] VITALS: BP 142/90
[2017-07-16] VITALS (9 sets, daily range): BP systolic 138–170; BP diastolic 84–98
--- NOTE | 2017-07-16 07:25 | PN- Housestaff ---
BennettLakshmi 07/16/17 0725: Subjective Follow-up For: Seizure? Altered mental status Subjective: No overnight event. Patient had a 1-1 sitter at bedside. Patient refused to have his pants on and get covered by bedsheet. Patient stated that why he could not go to restroom as he is a free man of his house, unaware of him being in hospita. Review of Systems Constitutional: Reports: see HPI. Objective Last 24 Hrs of Vital Signs/I&O Vital Signs Date Time Temp Pulse Resp B/P B/P Pulse O2 O2 Flow FiO2 Mean Ox Delivery Rate 07/16 0600 97.6 71 20 138/84 99 07/16 0150 97.8 80 20 166/88 96 07/15 2332 97.2 78 18 142/90 98 Room Air 07/15 2126 142/90 07/15 1440 98.7 98 20 140/80 96 Room Air 07/15 1021 98.1 118 20 154/90 95 Room Air Intake & Output 07/16 1600 07/16 0800 07/16 0000 Intake Total 1120 615 Output Total 400 900 Balance 720 -285 Intake, IV 1000 375 Intake, Oral 120 240 Output, Urine 400 900 Physical Exam General Appearance: Alert, Delirius Current Medications: Current Medications Sig/Jessica Start time Last Medication Dose Route Stop Time Status Admin Acetaminophen 650 MG Q6P PRN 07/13 1345 AC 07/13 PO 2119 Clonidine 0.2 MG BID 07/13 2200 AC 07/15 PO 2126 Dextrose/Sodium 1,000 ML .Q8H 07/13 1345 AC 07/16 Chloride IV 0518 Enoxaparin Sodium 40 MG DAILY 07/13 1348 AC 07/15 SC 1120 Famotidine 20 MG DAILY 07/14 1000 AC 07/14 PO 1056 Folic Acid 1 MG DAILY 07/14 1000 AC 07/15 PO 1120 Levetiracetam 500 MG BID 07/13 2200 AC 07/15 PO 2126 Lorazepam 1 MG Q6H 07/16 0000 DC PO 07/16 1201 Lorazepam 1 MG Q8 07/15 1400 AC 07/16 IV 0518 Lorazepam 1.5 MG Q8 07/14 2200 DC 07/14 PO 2049 Lorazepam 2 MG Q2P PRN 07/13 1115 AC IV Lorazepam 1 MG Q2P PRN 07/13 1115 AC 07/16 IV 0108 Multivitamins 1 TAB DAILY 07/14 1000 AC 07/14 PO 1057 Quetiapine Fumarate 50 MG BID 07/14 1000 AC 07/15 PO 2126 Thiamine HCl 100 MG DAILY 07/14 1000 AC 07/14 PO 1058 Last 24 Hrs of Lab/Cecilio Results Last 24 Hrs of Labs/Mics: Laboratory Tests 07/15/172154: Ammonia 22, TSH 4.010 Microbiology 07/15 2209 BLOOD: Blood Culture - RECD 07/15 2154 BLOOD: Blood Culture - RECD Assessment/Plan Assessment: Mr. Jiang is a 72 yo male with h/o ?seizures (?alcohol related), HTN, and EtoH abuse who was BIBA to [place] [facility] after a witnessed seizure event at home by , with uncertainty of last drink as patietn was a poor historian. However, alcohol level had been negative on admission. Patient denied headache, chest pain, dyspnea, abdominal pain on admission. Patient was admitted to [place] in 01/2017 for similar seizure event and was sent home on Keppra. ER Course: VS: T 98.3, P 106-76, R 15, BP 189/93-151/77, PO 98% RA Physical exam unremarkable except Neuro: poor historian, oriented to place, no focal neuro deficits, however gait unsteady when attempting to ambulate to bathroom. Patient was admitted to general medicine for following management: #S/P Seizure w/ unlcear etiology: PCP is Dr. Salas. Patient had left AMA from last admission, questionably compliance with Keppra after last discharge. - Continue Keppra 500mg bid. Monitor keppra level - Neuro f.u recommended TSH and Ammonia, which was WNL. - EEG was limited study due to patient's combative behavior. however, No evident epileptiform abnormalities. If clinical suspicion of seizures is high a repeat recording with sedation should be considered. - Fall/Seizure precautions. #EtOH Abuse- unclear amount of alcohol the patient drinks. ED indicated that he had been drinking, however could not recall his last drink. - Continue CIWA's protocol - Continue Ativan 1mg q8 IV as patient refused PO meds due to AMS. - Continue MVI, Folate, Thiamine protocol. - Pending Social Service consult. #HTN- With patient's current mental status, clonidine incompliance and possible clonidine withdrawal could not beunclear why patient is listed as being on Clonidine for BP control. Also unclear if the patient has been compliant. If he has been compliant would be concerned regarding potential clonidine withdrawal. - Continue Clonidine for now, however, patient refused meds this mrning. - Dr. Salas's record had no recent Keppra use on latest visit, possibly due to patient's incompliant. - Consider alternative anti-hypertensive as needed DVT PPX Lovenox + ALPS NPO Full Code Problem List: 1. Altered mental status Pain Ratin Pain Location: Patient was delirius Pain Goal: Remain pain free Pain Plan: see AP Tomorrow's Labs & Rationales: Jonah Mitchell 07/16/17 1244: Attending MD Review Statement Attending Statement Attending MD Statement: examined this patient, discuss w/resident/PA/RN CLINICAL TRIALS, agreed w/resident/PA/RN CLINICAL TRIALS, discussed with family, reviewed EMR data (avail), discussed with nursing, discussed with case mgmt, reviewed images, amended to note
[2017-07-17 06:42] VITALS: BP 156/80
--- NOTE | 2017-07-17 07:21 | PN- Housestaff ---
DonaldLakshmi 07/17/17 0720: Subjective Follow-up For: Seizure? Altered mental status Subjective: No overnight event. Patient was sleeping when I entered. Review of Systems Constitutional: Reports: see HPI. Objective Last 24 Hrs of Vital Signs/I&O Vital Signs Date Time Temp Pulse Resp B/P B/P Pulse O2 O2 Flow FiO2 Mean Ox Delivery Rate 07/17 0642 97.8 87 20 156/80 93 Room Air 07/16 2213 98.2 77 20 166/98 97 Room Air 07/16 2122 166/98 07/16 1600 97.8 76 20 170/92 93 Room Air 07/16 1400 97.8 68 20 170/92 07/16 1200 98.0 76 18 152/86 07/16 1019 76 152/86 07/16 1006 98.0 76 18 152/86 97 Room Air 07/16 1000 97.7 71 20 138/84 07/16 0800 97.7 71 20 138/84 Intake & Output 07/17 0800 07/17 0000 07/16 1600 Intake Total 1000 1000 875 Output Total 800 700 500 Balance 200 300 375 Intake, IV 1000 1000 875 Number 1 Bowel Movements Output, Urine 800 700 500 Patient 63.503 kg Weight Physical Exam General Appearance: Patient was sleeping. Current Medications: Current Medications Sig/Jessica Start time Last Medication Dose Route Stop Time Status Admin Acetaminophen 650 MG Q6P PRN 07/13 1345 AC 07/13 PO 2119 Clonidine 0.2 MG BID 07/13 220 AC 07/16 PO 2122 Dextrose/Sodium 1,000 ML .Q8H 07/13 1345 AC 07/17 Chloride IV 0520 Enoxaparin Sodium 40 MG DAILY 07/13 1348 AC 07/16 SC 1020 Famotidine 20 MG DAILY 07/14 1000 AC 07/16 PO 1019 Folic Acid 1 MG DAILY 07/14 1000 AC 07/16 PO 1018 Levetiracetam 500 MG BID 07/13 2200 AC 07/16 PO 2122 Lorazepam 1 MG Q8 07/15 1400 AC 07/17 IV 0521 Lorazepam 2 MG Q2P PRN 07/13 1115 AC IV Lorazepam 1 MG Q2P PRN 07/13 1115 AC 07/16 IV 0108 Multivitamins 1 TAB DAILY 07/14 1000 AC 07/16 PO 1019 Patient Medication 1 ED ONE ONE 07/16 1200 DC 07/16 Teaching ED 07/16 1201 1439 Quetiapine Fumarate 50 MG BID 07/14 1000 AC 07/16 PO 2121 Thiamine HCl 100 MG DAILY 07/14 1000 AC 07/16 PO 1018 Last 24 Hrs of Lab/Cecilio Results Last 24 Hrs of Labs/Mics: Laboratory Tests 07/17/17 0725: Sodium Pending, Potassium Pending, Chloride Pending, Carbon Dioxide Pending, Anion Gap Pending, BUN Pending, Creatinine Pending, BUN/Creatinine Ratio Pending , CBC w Diff Pending, WBC Pending, RBC Pending, Hgb Pending, Hct Pending, MCV Pending, MCH Pending, MCHC Pending, RDW Pending, Plt Count Pending, MPV Pending Assessment/Plan Assessment: Mr. Jiang is a 72 yo male with h/o ?seizures (?alcohol related), HTN, and EtoH abuse who was BIBA to [place] [facility] after a witnessed seizure event at home by , with uncertainty of last drink as patietn was a poor historian. However, alcohol level had been negative on admission. Patient denied headache, chest pain, dyspnea, abdominal pain on admission. Patient was admitted to [place] in 01/2017 for similar seizure event and was sent home on Keppra. ER Course: VS: T 98.3, P 106-76, R 15, BP 189/93-151/77, PO 98% RA Physical exam unremarkable except Neuro: poor historian, oriented to place, no focal neuro deficits, however gait unsteady when attempting to ambulate to bathroom. Patient was admitted to general medicine for following management: #S/P Seizure w/ unlcear etiology: PCP is Dr. Salas. Patient had left AMA from last admission, questionably compliance with Keppra after last discharge. - Continue Keppra 500mg bid. Monitor keppra level - Neuro f.u recommended TSH and Ammonia, which were WNL. - EEG was limited study due to patient's combative behavior. however, No evident epileptiform abnormalities. If clinical suspicion of seizures is high a repeat recording with sedation should be considered. - Fall/Seizure precautions. #EtOH Abuse- unclear amount of alcohol the patient drinks. ED indicated that he had been drinking, however could not recall his last drink. - Continue CIWA's protocol - Continue Ativan 0.5mg q8 IV as patient refused PO meds due to AMS. - Continue MVI, Folate, Thiamine protocol. - Pending Social Service consult. #HTN- With patient's current mental status, clonidine incompliance and possible clonidine withdrawal could not be unclear why patient is listed as being on Clonidine for BP control. Also unclear if the patient has been compliant. If he has been compliant would be concerned regarding potential clonidine withdrawal. - Continue Clonidine for now, however, patient refused meds from time to time. - Dr. Salas's record had no recent Keppra use on latest visit, possibly due to patient's incompliant. - Consider alternative anti-hypertensive as needed DVT PPX Lovenox + ALPS NPO Full Code Problem List: 1. Altered mental status Pain Ratin Pain Location: NA Pain Goal: Remain pain free Pain Plan: see AP Tomorrow's Labs & Rationales: Jonah Mitchell 07/17/17 1300: Attending MD Review Statement Attending Statement Attending MD Statement: examined this patient, discuss w/resident/PA/LICENSED MARINE ENGINEER, agreed w/resident/PA/LICENSED MARINE ENGINEER, discussed with family, reviewed EMR data (avail), discussed with nursing, discussed with case mgmt, reviewed images, amended to note Attending Assessment/Plan: Patient seen/examined bedside. Patient is admitted with acute encephalopathy related to seizure disorder likely complex partial seizure. He remains delirious with abnormal behavoiur and sitter bedside. 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 Patient needs to follow up neurology as outpatient. SW consult for insurance issues. cont current care..
[2017-07-17 08:25] LABS: ABSOLUTE BASOPHIL COUNT 0 /CUMM (0.0-0.2); ABSOLUTE EOSINOPHIL COUNT 0.3 /CUMM (0.0-0.7); ABSOLUTE GRANULOCYTE CT 3.8 /CUMM (1.4-6.5); ABSOLUTE LYMPH COUNT 1.3 /CUMM (1.2-3.4); ABSOLUTE MONOCYTE COUNT 0.4 /CUMM (0.10-0.60); BASOPHIL % 0.4 % (0.0-2.0); EOSINOPHIL % 4.6 % (0-5); MEAN CORPUSCULAR HGB 31.5 PG (27.0-31.0); MEAN CORPUSCULAR HGB CONC 33.7 G/DL (33.0-37.0); MEAN CORPUSCULAR VOLUME 93.5 FL (80.0-94.0); PLATELET COUNT 133 /CUMM (130-400); RBC DISTRIBUTION WIDTH 13.3 % (11.5-14.5); RED BLOOD CELL CT 4.17 /CUMM (4.70-6.10); WHITE BLOOD CELL COUNT 5.8 /CUMM (4.8-10.8)
[2017-07-17 14:13] VITALS: BP 124/76
--- NOTE | 2017-07-17 14:13 | Cons- Psychiatry ---
Psychiatric Consult Date of Consult: 07/17/17 Reason for Consult: Delirium w/ Hx of seizure . . . History of Present Illness: 72 , male BIBA from home with CC of seizure-like activity. Allergies: Coded Allergies: No Known Allergies (07/13/17) Current Medications: Current Medications Sig/Jessica Start time Last Medication Dose Route Stop Time Status Admin Acetaminophen 650 MG Q6P PRN 07/13 1345 AC 07/13 PO 2119 Clonidine 0.2 MG BID 07/13 2200 AC 07/17 PO 1007 Dextrose/Sodium 1,000 ML .Q8H 07/13 1345 AC 07/17 Chloride IV 1307 Enoxaparin Sodium 40 MG DAILY 07/13 1348 AC 07/17 SC 1007 Famotidine 20 MG DAILY 07/14 1000 AC 07/17 PO 1007 Folic Acid 1 MG DAILY 07/14 1000 AC 07/17 PO 1007 Levetiracetam 500 MG BID 07/13 2200 AC 07/17 PO 1007 Lorazepam 0.5 MG Q6 07/17 1800 AC IV Lorazepam 0.5 MG Q12 07/17 1000 DC 07/17 IV 1006 Lorazepam 1 MG Q8 07/15 1400 DC 07/17 IV 0521 Lorazepam 2 MG Q2P PRN 07/13 1115 AC IV Lorazepam 1 MG Q2P PRN 07/13 1115 AC 07/16 IV 0108 Multivitamins 1 TAB DAILY 07/14 1000 AC 07/17 PO 1007 Quetiapine Fumarate 50 MG BID 07/14 1000 AC 07/17 PO 1007 Thiamine HCl 100 MG DAILY 07/14 1000 AC 07/17 PO 1007 Past History Past Medical History Neurological: seizure (alcohol withdrawal related) EENT: [place] Cardiovascular: hypertension Respiratory: NONE Gastrointestinal: NONE Hepatic: NONE Renal: NONE Musculoskeletal: NONE Psychiatric: alcohol dependence Endocrine: NONE Blood Disorders: NONE Cancer(s): NONE TRAIN CONDUCTOR/Reproductive: NONE Past Surgical History Surgical History: non-contributory Assessment/Plan Diffential Diagnosis: Dementia vs delirium, possibly due to alcohol withdrawal. Impression: The patient was seen today, and is agitated at being awakened, and stating that the medical team has made promises to him that they have not kept, namely discharging him today. He is not oriented, is hard of hearing, denies current suicidal ideation, but reports he has those thoughts sometimes. Most answers are tangential and may require 3-4 attempts to get an answer. The patient and his spouse have noticed a change in his memory in the past six months. The patient's spouse reports that he does not have access to alcohol, and his last known drink was in January or March,, when he ran into a friend. The spouse is a moderately poor field reporter and states that he has been on quetiapine for agitation since he as at [facility], sent there by [facility] for a seizure. She reports that he is not at his baseline, is more combative, but he is agitated at baseline. Provisional Treatment Plan: 1. Increase lorazepam to 0.5 mg IV q 6 hours, and maintain as needed dosing per CIWA. 2. Continue sitter and soft wrist restraints, per nursing protocol, as the patient is confused, and agitated. Restraints only for the shortest possible time. The patient may not leave AMA or otherwise. Please be cautious with this patient, as he can make sudden movements, even whil ein restraints. 3. Please ask the insurance sales associate to contact the , Kim, , to assist with Medicare Part B application. 4. Please make an appointment with the patient's PCP, Dr. Lalo Salas, as he has not seen him for a long time, per the . 5. Geriatric evaluations as an outpatient, by PCP 6. Current EKG. 7. Hold quetiapine for arrhythmia or QTc greater than 475 mS. Hold quetiapine for hypokalemia or hypomagnesemia. Complete note to follow. We will continue to follow along with you, and expect to visit the patient on . Thank you for this consult.
[2017-07-17 22:05] VITALS: BP 166/72
[2017-07-18 06:52] VITALS: BP 178/94
--- NOTE | 2017-07-18 09:20 | PN- Housestaff ---
Lakshmi Bennett 07/18/17 0920: Subjective Follow-up For: Hx of Seizure? Altered mental status Subjective: No overnight event. Patient appeared to be more approachable with increased interaction with me, however still not fully oriented to place time or person during conversation. Not appearing to be combative. Offered no complaint. Nursing staff stated findings of blood stain probably from urine on diaper while changing Review of Systems Constitutional: Reports: see HPI. Objective Last 24 Hrs of Vital Signs/I&O Vital Signs Date Time Temp Pulse Resp B/P B/P Pulse O2 O2 Flow FiO2 Mean Ox Delivery Rate 07/18 0652 98.0 67 18 178/94 93 Room Air 07/17 2205 99.0 82 18 166/72 99 Room Air 07/17 2116 82 166/72 07/17 1413 98.4 74 16 124/76 95 Room Air Intake & Output 07/18 1600 07/18 0800 07/18 0000 Intake Total 1160 615 Output Total 350 700 Balance 810 -85 Intake, IV 1040 375 Intake, Oral 120 240 Number 0 0 Bowel Movements Output, Urine 350 700 Physical Exam General Appearance: Alert, No Acute Distress, [place] to self only. Not combative. Current Medications: Current Medications Sig/Jessica Start time Last Medication Dose Route Stop Time Status Admin Acetaminophen 650 MG Q6P PRN 07/13 1345 AC 07/13 PO 2118 Clonidine 0.2 MG BID 07/13 2200 AC 07/17 PO 211 Dextrose/Sodium 1,000 ML .Q8H 07/13 1345 AC 07/18 Chloride IV 0555 Enoxaparin Sodium 40 MG DAILY 07/13 1348 AC 07/17 SC 1007 Famotidine 20 MG DAILY 07/14 1000 AC 07/17 PO 1007 Folic Acid 1 MG DAILY 07/14 1000 AC 07/17 PO 1007 Levetiracetam 500 MG BID 07/13 2200 AC 07/17 PO 2112 Lorazepam 0.5 MG Q6 07/17 1800 AC 07/18 IV 0555 Lorazepam 0.5 MG Q12 07/17 1000 DC 07/17 IV 1006 Lorazepam 2 MG Q2P PRN 07/13 1115 AC IV Lorazepam 1 MG Q2P PRN 07/13 1115 AC 07/16 IV 0108 Multivitamins 1 TAB DAILY 07/14 1000 AC 07/17 PO 1007 Quetiapine Fumarate 50 MG BID 07/14 1000 AC 07/17 PO 2112 Thiamine HCl 100 MG DAILY 07/14 1000 AC 07/17 PO 1007 Assessment/Plan Assessment: Mr. Jiang is a 72 yo male with h/o ?seizures (?alcohol related), HTN, and EtoH abuse who was BIBA to [facility] after a witnessed seizure event at home by , with uncertainty of last drink as nickyn was a poor historian. However, alcohol level had been negative on admission. Patient denied headache, chest pain, dyspnea, abdominal pain on admission. Patient was admitted to [facility] in 01/2017 for similar seizure event and was sent home on Keppra. ER Course: VS: T 98.3, P 106-76, R 15, BP 189/93-151/77, PO 98% RA Physical exam unremarkable except Neuro: poor historian, oriented to place, no focal neuro deficits, however gait unsteady when attempting to ambulate to bathroom. Patient was admitted to general medicine for following management: #S/P Seizure w/ unlcear etiology: PCP is Dr. Salas. Patient had left AMA from last admission, questionably compliance with Keppra after last discharge. - Continued Keppra 500mg bid. - Neuro f.u recommended TSH and Ammonia, which were WNL. - EEG was limited study due to patient's combative behavior. however, No evident epileptiform abnormalities. If clinical suspicion of seizures is high a repeat recording with sedation should be considered. - Fall/Seizure precautions. - Patient appeared to be improved today on mental status without obvious combative behaviors and more conversational. Would continue above treatment and may consider Ativan taper as below. #EtOH Abuse- unclear amount of alcohol the patient drinks. ED indicated that he had been drinking, however could not recall his last drink. - Continue CIWA's protocol - Continue IV Ativan 0.5mg q6, as patient refused PO meds due to AMS. - Continue MVI, Folate, Thiamine protocol. - Pending insurance consult for to get Medicare Part B application. #HTN- With patient's current mental status, clonidine incompliance and possible clonidine withdrawal could not be unclear why patient is listed as being on Clonidine for BP control. Also unclear if the patient has been compliant. If he has been compliant would be concerned regarding potential clonidine withdrawal. - Continue Clonidine for now, however, patient refused meds from time to time. - Dr. Salas's record had no recent Keppra use on latest visit, possibly due to patient's incompliant. - Consider alternative anti-hypertensive as needed. DVT PPX Lovenox + ALPS NPO Full Code Problem List: 1. Altered mental status Pain Ratin Pain Location: NA Pain Goal: Remain pain free Pain Plan: see AP Tomorrow's Labs & Rationales: CBC/BEP Jonah Monge 07/18/17 1252: Attending MD Review Statement Attending Statement Attending MD Statement: examined this patient, discuss w/resident/PA/BREWERY PUMPER, agreed w/resident/PA/BREWERY PUMPER, discussed with family, reviewed EMR data (avail), discussed with nursing, discussed with case mgmt, reviewed images, amended to note Attending Assessment/Plan: Patient seen/examined bedside. Patient is admitted with acute encephalopathy related to seizure disorder likely complex partial seizure. He remains delirious with abnormal behavoiur and sitter bedside. 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 Patient told medical team to go out of his room. He is aaox 1 (self) Patient needs to follow up neurology as outpatient. SW consult for insurance issues. cont current care..
[2017-07-18 15:18] VITALS: BP 146/84
--- NOTE | 2017-07-18 17:11 | PN- Psychiatry ---
See Addendum Assessment/Plan Impression: The patient's mentation has improved, and his mood is no longer irritable when I visited him at 1600 today. We are unsure if the patient is waxing/waning and we saw him today in a lucid period, or if he is improving toward clarity. If the former, he may still be detoxing from alcohol, or have another toxic or metabolic etiology for the confusion we have seen recently. Today, he is able to report that his last drink of one beer was several weeks ago. He states that he does not drink every day, and when he does, it is usually 1-3 beers, at home. 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 His slow and deliberate speech may be baseline, which we will ask the spouse about, but he is closer to her description of overall baseline yesterday. Suggestion: 1. Continue alcohol withdrawal detox lorazepam taper protocol, but have a low threshold for reinstating it if delirium returns. 2. Please advise of his discharge date. Before we offer him an appointment at [facility], provided his Medicare B application has been filed, we would like to re- evaluate him. 3. Referral to PCP for hearing evaluation. We understand that the patient will likely remain here over the weekend. We will plan on visiting him on 07/21/17 We will continue to follow along. Subjective Subjective: The patient is sitting in bed, in a [place] vest and two point soft wrist restraints, which allow him to play solitaire on his table. He is calm and pleasant, with lethargic and thick speech of normal rate, but loud volume. He is very hard of hearing, and many questions have to be spoken loudly several times. He does not have his glasses and cannot read well. He denies auditory or visual hallucinations, and presents no monty delusions. He denies suicidal or homicidal ideation. His judgement and insight are much improved since our visit yesterday, as well as his mood, which is euthymic. Review of Systems Neurological/Psychological: Reports: no symptoms. Objective Last 24 Hrs of Vital Signs/I&O Vital Signs Date Time Temp Pulse Resp B/P B/P Pulse O2 O2 Flow FiO2 Mean Ox Delivery Rate 07/18 1518 98.1 94 18 146/84 95 Room Air 07/18 1105 120 166/98 07/18 0652 98.0 67 18 178/94 93 Room Air 07/17 220 99.0 82 18 166/72 99 Room Air 07/17 2116 82 166/72 Intake & Output 07/18 1600 07/18 0800 07/18 0000 Intake Total 720 1160 615 Output Total 350 350 700 Balance 370 810 -85 Intake, IV 1040 375 Intake, Oral 720 120 240 Number 0 0 Bowel Movements Output, Urine 350 350 700 Physical Exam: Not performed Physical Exam General Appearance: no apparent distress, alert, awake, comfortable, lethargic Current Medications: Current Medications Sig/Jessica Start time Last Medication Dose Route Stop Time Status Admin Acetaminophen 650 MG Q6P PRN 07/13 1345 AC 07/13 PO 2119 Clonidine 0.2 MG BID 07/13 220 AC 07/18 PO 1105 Dextrose/Sodium 1,000 ML .Q8H 07/13 1345 AC 07/18 Chloride IV 1403 Enoxaparin Sodium 40 MG DAILY 07/13 1348 AC 07/18 SC 1101 Famotidine 20 MG DAILY 07/14 1000 AC 07/18 PO 1101 Folic Acid 1 MG DAILY 07/14 1000 AC 07/18 PO 1102 Levetiracetam 500 MG BID 07/13 2200 AC 07/18 PO 1102 Lorazepam 0.5 MG Q8 07/18 2200 AC IV Lorazepam 0.5 MG Q6 07/17 1800 DC 07/18 IV 1306 Lorazepam 2 MG Q2P PRN 07/13 1115 AC IV Lorazepam 1 MG Q2P PRN 07/13 1115 AC 07/16 IV 0108 Multivitamins 1 TAB DAILY 07/14 1000 AC 07/18 PO 1102 Quetiapine Fumarate 50 MG BID 07/14 1000 AC 07/18 PO 1101 Thiamine HCl 100 MG DAILY 07/14 1000 AC 07/18 PO 1102 Results Last 24 Hrs of Labs/Mics: Laboratory Tests 07/17 07/15 0725 2155 Chemistry Sodium (137 - 145 mmol/L) 144 Potassium (3.5 - 5.1 mmol/L) 3.2 L Chloride (98 - 107 mmol/L) 112 H Carbon Dioxide (22 - 30 mmol/L) 22 Anion Gap (5 - 16) 9 BUN (9 - 20 mg/dL) 3 L Creatinine (0.7 - 1.2 mg/dL) 0.7 Estimated GFR (>60 ml/min) > 60 BUN/Creatinine Ratio (7 - 25 %) 4.3 L Ammonia (9 - 30 umol/L) 22 TSH (0.270 - 4.200 uIU/mL) 4.010 Hematology CBC w Diff NO MAN DIFF REQ WBC (4.8 - 10.8 /CUMM) 5.8 RBC (4.70 - 6.10 /CUMM) 4.17 L Hgb (14.0 - 18.0 G/DL) 13.1 L Hct (42 - 52 %) 39.0 L MCV (80.0 - 94.0 FL) 93.5 MCH (27.0 - 31.0 PG) 31.5 H MCHC (33.0 - 37.0 G/DL) 33.7 RDW (11.5 - 14.5 %) 13.3 Plt Count (130 - 400 /CUMM) 133 MPV (7.4 - 10.4 FL) 9.0 Gran % (42.2 - 75.2 %) 66.0 Lymphocytes % (20.5 - 51.1 %) 22.3 Monocytes % (1.7 - 9.3 %) 6.7 Eosinophils % (0 - 5 %) 4.6 Basophils % (0.0 - 2.0 %) 0.4 Absolute Granulocytes (1.4 - 6.5 /CUMM) 3.8 Absolute Lymphocytes (1.2 - 3.4 /CUMM) 1.3 Absolute Monocytes (0.10 - 0.60 /CUMM) 0.4 Absolute Eosinophils (0.0 - 0.7 /CUMM) 0.3 Absolute Basophils (0.0 - 0.2 /CUMM) 0
[2017-07-18 21:49] VITALS: BP 144/90
[2017-07-19 06:44] VITALS: BP 142/68
--- NOTE | 2017-07-19 09:20 | PN- Housestaff ---
Larry Concepcion MD,[facility] 07/19/17 0919: Subjective Follow-up For: Hx of Seizure? Altered mental status Subjective: Patient visited today, was lying in bed comfortably in no acute distress, was alert but not oriented. Did not respond to questions, incoherence answers. [place] in place No fever or chills, no shortness of breathing, no chest pain, no other events. discontiniued fludis, changed ativan to PO Review of Systems Constitutional: Reports: see HPI. Objective Last 24 Hrs of Vital Signs/I&O Vital Signs Date Time Temp Pulse Resp B/P B/P Pulse O2 O2 Flow FiO2 Mean Ox Delivery Rate 07/19 1407 97.7 20 07/19 1400 97.7 90 18 190/100 96 Room Air Room Air 07/19 1110 84 198/90 07/19 0644 97.9 63 18 142/68 94 Room Air 07/18 2149 98.7 99 18 144/90 95 Room Air 07/18 2050 94 146/84 Intake & Output 07/19 1600 07/19 0800 07/19 0000 Intake Total 1150 495 Output Total 500 450 350 Balance -500 700 145 Intake, IV 1000 375 Intake, Oral 150 120 Output, Urine 500 450 350 Physical Exam General Appearance: Alert, No Acute Distress, no cooperative Sepsis Skin Exam (color): Normal for Ethnicity HEENT: Atraumatic, EOMI, Mucous Membr. moist/pink Cardiovascular: Normal S1, Normal S2 Lungs: Clear to Auscultation Abdomen: No Tenderness Neurological: not cooperative Current Medications: Current Medications Sig/Jessica Start time Last Medication Dose Route Stop Time Status Admin Acetaminophen 650 MG Q6P PRN 07/13 1345 AC 07/13 PO 2119 Clonidine 0.2 MG BID 07/13 220 AC 07/19 PO 1110 Dextrose/Sodium 1,000 ML .Q8H 07/13 1345 DC 07/19 Chloride IV 1330 Enoxaparin Sodium 40 MG DAILY 07/13 1348 AC 07/19 SC 1110 Famotidine 20 MG DAILY 07/14 1000 AC 07/19 PO 1110 Folic Acid 1 MG DAILY 07/14 1000 AC 07/19 PO 1110 Levetiracetam 500 MG BID 07/13 2200 AC 07/19 PO 1110 Lorazepam 0.5 MG Q8 07/19 2199 AC PO 07/26 2158 Lorazepam 0.5 MG Q8 07/18 2200 DC 07/19 IV 1456 Lorazepam 2 MG Q2P PRN 07/13 1115 AC IV Lorazepam 1 MG Q2P PRN 07/13 1115 AC 07/16 IV 0108 Multivitamins 1 TAB DAILY 07/14 1000 AC 07/19 PO 1110 Potassium Chloride 40 MEQ ONCE ONE 07/18 2245 DC 07/18 PO 07/18 2246 2330 Quetiapine Fumarate 50 MG BID 07/14 1000 AC 07/19 PO 1110 Thiamine HCl 100 MG DAILY 07/14 1000 AC 07/19 PO 1111 Last 24 Hrs of Lab/Cecilio Results Last 24 Hrs of Labs/Mics: Laboratory Tests 07/19/17 0910: RBC 4.20 L, MCV 94.5 H, MCH 31.5 H, MCHC 33.4, RDW 13.4, MPV 8.7, Gran % 68.3 , Lymphocytes % 19.4 L, Monocytes % 8.4, Eosinophils % 3.5, Basophils % 0.4, Absolute Granulocytes 4.4, Absolute Lymphocytes 1.3, Absolute Monocytes 0.5, Absolute Eosinophils 0.2, Absolute Basophils 0 07/19/17 0633: Anion Gap 9, Estimated GFR > 60, BUN/Creatinine Ratio 7.1 Assessment/Plan Assessment: Mr. Jiang is a 72 yo male with h/o ?seizures (?alcohol related), HTN, and EtoH abuse who was BIBA to [facility] after a witnessed seizure event at home by , with uncertainty of last drink as nickyn was a poor historian. However, alcohol level had been negative on admission. Patient denied headache, chest pain, dyspnea, abdominal pain on admission. Patient was admitted to [facility] in 01/2017 for similar seizure event and was sent home on Keppra. ER Course: VS: T 98.3, P 106-76, R 15, BP 189/93-151/77, PO 98% RA Physical exam unremarkable except Neuro: poor historian, oriented to place, no focal neuro deficits, however gait unsteady when attempting to ambulate to bathroom. Patient was admitted to general medicine for following management: #S/P Seizure w/ unlcear etiology: PCP is Dr. Salas. Patient had left AMA from last admission, questionably compliance with Keppra after last discharge. - Continued Keppra 500mg bid. - Neuro f.u recommended TSH and Ammonia, which were WNL. - EEG was limited study due to patient's combative behavior. however, No evident epileptiform abnormalities. If clinical suspicion of seizures is high a repeat recording with sedation should be considered. - Fall/Seizure precautions. - Patient appeared to be improved today on mental status without obvious combative behaviors and more conversational. Would continue above treatment and may consider Ativan taper as below. - no major change in mental condition or cooperation - ativan changed to po #EtOH Abuse- unclear amount of alcohol the patient drinks. ED indicated that he had been drinking, however could not recall his last drink. - Continue CIWA's protocol - Continue IV Ativan 0.5mg q6, chganged to PO as patient taking meds - Continue MVI, Folate, Thiamine protocol. - Pending insurance consult for to get Medicare Part B application. #HTN- With patient's current mental status, clonidine incompliance and possible clonidine withdrawal could not be unclear why patient is listed as being on Clonidine for BP control. Also unclear if the patient has been compliant. If he has been compliant would be concerned regarding potential clonidine withdrawal. - Continue Clonidine for now, however, patient refused meds from time to time. - Dr. Salas's record had no recent Keppra use on latest visit, possibly due to patient's incompliant. - Consider alternative anti-hypertensive as needed. DVT PPX Lovenox + ALPS NPO Full Code Problem List: 1. Altered mental status Pain Ratin Pain Location: None Pain Goal: Pain 4 or less Pain Plan: contnue current plan Tomorrow's Labs & Rationales: CBC BEP Jonah Monge 07/19/17 1124: Attending MD Review Statement Attending Statement Attending MD Statement: examined this patient, discuss w/resident/PA/WHITE KID BUFFER, agreed w/resident/PA/WHITE KID BUFFER, discussed with family, reviewed EMR data (avail), discussed with nursing, discussed with case mgmt, reviewed images, amended to note Attending Assessment/Plan: Patient seen/examined bedside. Patient is admitted with acute encephalopathy related to seizure disorder likely complex partial seizure. He remains delirious with abnormal behavoiur and sitter bedside. 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 Patient remains delirious. He is aaox 2 today, orinted to place and self. Patient needs to follow up neurology as outpatient. SW consult for insurance issues. cont current care..
[2017-07-19 10:18] LABS: ABSOLUTE BASOPHIL COUNT 0 /CUMM (0.0-0.2); ABSOLUTE EOSINOPHIL COUNT 0.2 /CUMM (0.0-0.7); ABSOLUTE GRANULOCYTE CT 4.4 /CUMM (1.4-6.5); ABSOLUTE LYMPH COUNT 1.3 /CUMM (1.2-3.4); ABSOLUTE MONOCYTE COUNT 0.5 /CUMM (0.10-0.60); BASOPHIL % 0.4 % (0.0-2.0); EOSINOPHIL % 3.5 % (0-5); GRANULOCYTE % 68.3 % (42.2-75.2); HEMATOCRIT 39.7 % (42-52); MEAN CORPUSCULAR HGB 31.5 PG (27.0-31.0); MEAN CORPUSCULAR HGB CONC 33.4 G/DL (33.0-37.0); MEAN CORPUSCULAR VOLUME 94.5 FL (80.0-94.0); MEAN PLATELET VOLUME 8.7 FL (7.4-10.4); PLATELET COUNT 156 /CUMM (130-400); RBC DISTRIBUTION WIDTH 13.4 % (11.5-14.5); WHITE BLOOD CELL COUNT 6.5 /CUMM (4.8-10.8)
[2017-07-19 14:00] VITALS: BP 190/100
[2017-07-19 21:04] VITALS: BP 184/94
[2017-07-19 22:22] VITALS: BP 166/82
[2017-07-20 08:00] VITALS: BP 154/80
[2017-07-20 09:00] VITALS: BP 158/88
--- NOTE | 2017-07-20 09:27 | PN- Housestaff ---
Larry Concepcion MD,[facility] 07/20/17926: Subjective Follow-up For: Hx of Seizure? Altered mental status Subjective: Patient visited today, was lying in bed comfortably in no acute distress, was alert and partially oriented. tried to answer to questions. was combative overnight to staff. No fever or chills, no shortness of breathing, no chest pain, no other events. margaret in place. Review of Systems Constitutional: Reports: see HPI. Objective Last 24 Hrs of Vital Signs/I&O Vital Signs Date Time Temp Pulse Resp B/P B/P Pulse O2 O2 Flow FiO2 Mean Ox Delivery Rate 07/20 921 98 158/88 07/20 09 98 18 158/88 07/20 0800 90 18 154/80 07/19 2222 166/82 07/19 2120 83 184/94 07/19 2104 97.8 83 18 184/94 95 07/19 1407 97.7 20 07/19 1400 97.7 90 18 190/100 96 Room Air Room Air Intake & Output 07/20 1600 07/20 0800 07/20 0000 Intake Total 240 500 Output Total 350 Balance 240 150 Intake, Oral 240 500 Output, Urine 350 Physical Exam General Appearance: Alert, No Acute Distress, more cooperative Skin: No Significant Lesion Skin Temp/Moisture Exam: Warm/Dry Sepsis Skin Exam (color): Normal for Ethnicity HEENT: Atraumatic, EOMI Lungs: Normal Air Movement Abdomen: Soft, No Tenderness Extremities: No Edema Current Medications: Current Medications Sig/Jessica Start time Last Medication Dose Route Stop Time Status Admin Acetaminophen 650 MG Q6P PRN 07/13 1345 AC 07/13 PO 211 Clonidine 0.2 MG BID 07/13 220 AC 07/20 PO 09 Dextrose/Sodium 1,000 ML .Q8H 07/13 1345 DC 07/19 Chloride IV 1330 Enoxaparin Sodium 40 MG DAILY 07/13 1348 AC 07/20 SC 0921 Famotidine 20 MG DAILY 07/14 1000 AC 07/20 PO 0922 Folic Acid 1 MG DAILY 07/14 1000 AC 07/20 PO 0922 Levetiracetam 500 MG BID 07/13 2200 AC 07/20 PO 0922 Lorazepam 0.5 MG Q8 07/190 AC 07/19 PO 07/26 Lorazepam 0.5 MG Q8 07/18 2200 DC 07/19 IV 1456 Lorazepam 2 MG Q2P PRN 07/13 1115 DC IV Lorazepam 1 MG Q2P PRN 07/13 1115 DC 07/20 IV 0752 Multivitamins 1 TAB DAILY 07/14 1000 AC 07/20 PO 0922 Quetiapine Fumarate 50 MG BID 07/14 1000 AC 07/20 PO 0922 Thiamine HCl 100 MG DAILY 07/14 1000 AC 07/20 PO 0922 Last 24 Hrs of Lab/Cecilio Results Last 24 Hrs of Labs/Mics: Mr. Jiang is a 72 yo male with h/o ?seizures (?alcohol related), HTN, and EtoH abuse who was BIBA to [facility] ER after a witnessed seizure event at home by , with uncertainty of last drink as patietn was a poor historian. However, alcohol level had been negative on admission. Patient denied headache, chest pain, dyspnea, abdominal pain on admission. Patient was admitted to [facility] in 01/2017 for similar seizure event and was sent home on Keppra. ER Course: VS: T 98.3, P 106-76, R 15, BP 189/93-151/77, PO 98% RA Physical exam unremarkable except Neuro: poor historian, oriented to place, no focal neuro deficits, however gait unsteady when attempting to ambulate to bathroom. Patient was admitted to general medicine for following management: #S/P Seizure w/ unlcear etiology: PCP is Dr. Salas. Patient had left AMA from last admission, questionably compliance with Keppra after last discharge. - Continued Keppra 500mg bid. - Neuro f.u recommended TSH and Ammonia, which were WNL. - EEG was limited study due to patient's combative behavior. however, No evident epileptiform abnormalities. If clinical suspicion of seizures is high a repeat recording with sedation should be considered. - Fall/Seizure precautions. - Patient appeared to be improved today on mental status without obvious combative behaviors and more conversational. Would continue above treatment and may consider Ativan taper as below. - no major change in mental condition or cooperation - ativan changed to po yesterday - continue to monitor - discharge planning #EtOH Abuse- unclear amount of alcohol the patient drinks. ED indicated that he had been drinking, however could not recall his last drink. - Continue CIWA's protocol - Continue IV Ativan 0.5mg q6, chganged to PO as patient taking meds, yesterday - Continue MVI, Folate, Thiamine protocol. - Pending insurance consult for to get Medicare Part B application. #HTN- With patient's current mental status, clonidine incompliance and possible clonidine withdrawal could not be unclear why patient is listed as being on Clonidine for BP control. Also unclear if the patient has been compliant. If he has been compliant would be concerned regarding potential clonidine withdrawal. - Continue Clonidine for now, however, patient refused meds from time to time. - Dr. Salas's record had no recent Keppra use on latest visit, possibly due to patient's incompliant. - Consider alternative anti-hypertensive as needed. DVT PPX Lovenox + ALPS regular diet Full Code Assessment/Plan Problem List: 1. Altered mental status 2. Seizure Pain Ratin Pain Location: None Pain Goal: Pain 4 or less Pain Plan: continue current plan Tomorrow's Labs & Rationales: CBC BEP Jonah Monge 07/20/17 1101: Attending MD Review Statement Attending Statement Attending MD Statement: examined this patient, discuss w/resident/PA/NODE JS DEVELOPER, agreed w/resident/PA/NODE JS DEVELOPER, discussed with family, reviewed EMR data (avail), discussed with nursing, discussed with case mgmt, reviewed images, amended to note Attending Assessment/Plan: Patient seen/examined bedside. Patient is admitted with acute encephalopathy related to seizure disorder likely complex partial seizure. He remains delirious with abnormal behavoiur and sitter bedside. 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 Patient remains delirious. He is aaox 2 today, orinted to place and self. Patient needs to follow up neurology as outpatient. SW consult for insurance issues. cont current care..
[2017-07-20 14:00] VITALS: BP 170/100
[2017-07-20 15:00] VITALS: BP 132/82
[2017-07-20 21:48] VITALS: BP 128/80
[2017-07-21 06:11] VITALS: BP 140/82
--- NOTE | 2017-07-21 07:36 | PN- Housestaff ---
See Addendum Subjective Follow-up For: Hx of Seizure? Altered mental status Subjective: No overnight event. Patient was using bathroom this morning with nursing education consultant. Nursing staff stated that patient was following command. On interaction, patient was eating his breakfast however was not answering my questions in a meaningful content. Review of Systems Constitutional: Reports: see HPI. Objective Last 24 Hrs of Vital Signs/I&O Vital Signs Date Time Temp Pulse Resp B/P B/P Pulse O2 O2 Flow FiO2 Mean Ox Delivery Rate 07/21 06 97.6 80 20 140/82 94 07/20 2148 98.1 110 20 128/80 94 Room Air 07/20 2043 110 128/80 07/20 1500 116 20 132/82 07/20 1400 140 20 170/100 07/20 0922 98 158/88 07/20 0900 98 18 158/88 07/20 0800 90 18 154/80 Intake & Output 07/21 0800 07/21 0000 07/20 1600 Intake Total 240 730 720 Output Total 450 200 Balance 240 280 520 Intake, IV 10 Intake, Oral 240 720 720 Number 1 Bowel Movements Output, Urine 450 200 Physical Exam General Appearance: Alert, No Acute Distress, Not answeing questions Current Medications: Current Medications Sig/Jessica Start time Last Medication Dose Route Stop Time Status Admin Acetaminophen 650 MG Q6P PRN 07/13 1345 AC 07/13 PO 2119 Calcium Carbonate 500 MG ONCE ONE 07/20 2215 DC 07/20 PO 07/20 2216 2211 Clonidine 0.2 MG BID 07/13 2200 AC 07/20 PO 2043 Enoxaparin Sodium 40 MG DAILY 07/13 1348 AC 07/20 SC 0921 Famotidine 20 MG DAILY 07/14 1000 AC 07/20 PO 0922 Folic Acid 1 MG DAILY 07/14 1000 AC 07/20 PO 0922 Levetiracetam 500 MG BID 07/13 2200 AC 07/20 PO 2043 Lorazepam 0 Q1P PRN 07/20 1515 AC IV Lorazepam 2 MG ONCE ONE 07/20 1500 DC 07/20 IV 07/20 1501 1543 Lorazepam 0.5 MG Q8 07/19 2200 AC 07/21 PO 07/26 2159 0552 Lorazepam 2 MG Q2P PRN 07/13 1115 DC IV Lorazepam 1 MG Q2P PRN 07/13 1115 DC 07/20 IV 0752 Multivitamins 1 TAB DAILY 07/14 1000 AC 07/20 PO 0922 Potassium Chloride 40 MEQ ONCE ONE 07/20 2000 CAN PO 07/20 2000 Potassium Chloride 40 MEQ ONCE ONE 07/20 1845 DC 07/20 PO 07/20 1846 1910 Quetiapine Fumarate 50 MG BID 07/14 1000 AC 07/20 PO 2043 Thiamine HCl 100 MG DAILY 07/14 1000 AC 07/20 PO 0922 Last 24 Hrs of Lab/Cecilio Results Last 24 Hrs of Labs/Mics: Laboratory Tests 07/21/17 0700: Sodium Pending, Potassium Pending, Chloride Pending, Carbon Dioxide Pending, Anion Gap Pending, BUN Pending, Creatinine Pending, BUN/Creatinine Ratio Pending Assessment/Plan Assessment: Mr. Jiang is a 72 yo male with h/o ?seizures (?alcohol related), HTN, and EtoH abuse who was BIBA to [place] [facility] after a witnessed seizure event at home by , with uncertainty of last drink as patietn was a poor historian. However, alcohol level had been negative on admission. Patient denied headache, chest pain, dyspnea, abdominal pain on admission. Patient was admitted to [facility] in 01/2017 for similar seizure event and was sent home on Keppra. ER Course: VS: T 98.3, P 106-76, R 15, BP 189/93-151/77, PO 98% RA Physical exam unremarkable except Neuro: poor historian, oriented to place, no focal neuro deficits, however gait unsteady when attempting to ambulate to bathroom. Patient was admitted to general medicine for following management: #S/P Seizure w/ unlcear etiology: PCP is Dr. Salas. Patient had left AMA from last admission, questionably compliance with Keppra after last discharge. - Continued Keppra 500mg bid. - Added Seroquel 50mg BID per Psych. - Neuro f.u recommended TSH and Ammonia, which were WNL. - EEG was limited study due to patient's combative behavior. however, No evident epileptiform abnormalities. If clinical suspicion of seizures is high a repeat recording with sedation should be considered. - Fall/Seizure precautions. - Patient appeared to be improved today on mental status without obvious combative behaviors and more conversational. Would continue above treatment and may consider Ativan taper as below. - no major change in mental condition or cooperation - ativan changed to po yesterday - continue to monitor - discharge planning #EtOH Abuse- unclear amount of alcohol the patient drinks. ED indicated that he had been drinking, however could not recall his last drink. - Continue CIWA's protocol - Continue IV Ativan 0.5mg tapered to q8, chganged to PO as patient taking meds, yesterday - Continue MVI, Folate, Thiamine protocol. - Pending insurance consult for to get Medicare Part B application. #HTN- With patient's current mental status, clonidine incompliance and possible clonidine withdrawal could not be unclear why patient is listed as being on Clonidine for BP control. Also unclear if the patient has been compliant. If he has been compliant would be concerned regarding potential clonidine withdrawal. - Continue Clonidine 0.2mg BID for now, however, patient refused meds from time to time. - Dr. Salas's record had no recent Keppra use on latest visit, possibly due to patient's incompliant. - Consider alternative anti-hypertensive as needed. DVT PPX Lovenox + ALPS regular diet Full Code Problem List: 1. Altered mental status Pain Ratin Pain Location: NA Pain Goal: Remain pain free Pain Plan: see AP Tomorrow's Labs & Rationales: CBC/BEP
[2017-07-21 13:36] VITALS: BP 136/78
--- NOTE | 2017-07-21 16:43 | PN- Neurology ---
Subjective Subjective: Admitted 8 days ago with seizure and confusional state. Hx reviewed in chart. Per psychiatry notes somewhat improved. Patient offers no complaints but conversation often irrelevant to questions posed. No recent agitation, per sitter. Review of Systems: Denies headaches, pain, dyspnea, vision loss, admits hearing loss. Objective Vital Signs and I&Os Vital Signs Date Time Temp Pulse Resp B/P B/P Pulse O2 O2 Flow FiO2 Mean Ox Delivery Rate 07/21 1624 Room Air Room Air 07/21 1336 97.9 80 20 136/78 96 Room Air 07/21 0823 78 142/80 07/21 0611 97.6 80 20 140/82 94 07/20 2148 98.1 110 20 128/80 94 Room Air 07/20 2043 110 128/80 Intake & Output 07/21 1600 07/21 0800 07/21 0000 07/20 1600 07/20 0800 07/20 0000 Intake Total 500 240 730 720 240 500 Output Total 450 450 200 350 Balance 50 240 280 520 240 150 Intake, IV 0 10 Intake, Oral 500 240 720 720 240 500 Number 1 1 Bowel Movements Output, Urine 450 450 200 350 Physical Exam: Awake, easily distracted, calm not agitated, conversant. Oriented to name, , Jul 2017. Memory impaired: IR of 3 objects required 3 trials, STM at 1 min 1/3. Remembers no presidents since Jass Patel. could not spell world backwards but no language errors. No hallucination or confabulation. EOMI with nystagmus to left and right Current Medications: Current Medications Sig/Jessica Start time Last Medication Dose Route Stop Time Status Admin Acetaminophen 650 MG Q6P PRN 07/13 1345 AC 07/13 PO 2118 Calcium Carbonate 500 MG ONCE ONE 07/20 2215 DC 07/20 PO 07/20 2216 2211 Clonidine 0.2 MG BID 07/13 2200 AC 07/21 PO 0823 Enoxaparin Sodium 40 MG DAILY 07/13 1348 AC 07/21 SC 0823 Famotidine 20 MG DAILY 07/14 1000 AC 07/21 PO 0823 Folic Acid 1 MG DAILY 07/14 1000 AC 07/21 PO 0823 Levetiracetam 500 MG BID 07/13 2200 AC 07/21 PO 0823 Lorazepam 0 Q1P PRN 07/20 1515 AC IV Lorazepam 0.5 MG Q8 07/190 AC 07/21 PO 07/26 2159 1334 Multivitamins 1 TAB DAILY 07/14 1000 AC 07/21 PO 0823 Potassium Chloride 40 MEQ ONCE ONE 07/20 1999 CAN PO 07/20 2000 Potassium Chloride 40 MEQ ONCE ONE 07/20 1845 DC 07/20 PO 07/20 1846 1910 Quetiapine Fumarate 50 MG BID 07/14 999 AC 07/21 PO 08 Thiamine HCl 100 MG DAILY 07/14 999 AC 07/21 PO 0823 Results Last 24 Hours of Lab Results: Laboratory Tests 07/21 0700 Chemistry Sodium (137 - 145 mmol/L) 141 Potassium (3.5 - 5.1 mmol/L) 4.2 Chloride (98 - 107 mmol/L) 105 Carbon Dioxide (22 - 30 mmol/L) 28 Anion Gap (5 - 16) 8 BUN (9 - 20 mg/dL) 12 Creatinine (0.7 - 1.2 mg/dL) 0.8 Estimated GFR (>60 ml/min) > 60 BUN/Creatinine Ratio (7 - 25 %) 15.0 Recent Imaging Studies: CT 07/13: There is no evidence of acute intracranial hemorrhage or territorial infarction. No abnormal mass effect or midline shift is seen. Segura to white matter differentiation is well preserved. No extra-axial fluid collections are identified. The ventricles are normal in size. There is low attenuation in the subcortical and periventricular regions in keeping with small vessel ischemic change. The osseous structures and soft tissues are normal. The mastoid air cells and visualized portions of the paranasal sinuses are well aerated. Mild mucosal thickening is seen in the ethmoid and maxillary sinuses. IMPRESSION: No acute intracranial pathology EEG 07/14: very limited study due to agitation, movement, no evident seizure activity MRI brain Jan 2017: - No mass lesion, acute infarction, or abnormal intracranial enhancement. - Decreased size of the left hippocampal head, body, and tail with diffuse elevated T2 signal compared with the right. Elevated T2 signal is also present within the amygdaloid body without volume loss. 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 Although elevated signal within the limbic system can be seen in encephalitis the hippocampal volume loss argues against this. There are no findings specific for Wernicke's encephalopathy. 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 - Moderate small vessel ischemic changes. [place] in seizure monitoring: no seizures detected Assessment/Plan Assessment: Dementia, most likely alcoholic as other medical causes have been excluded, some characteristics of Korsakoff's, nystagmus present, but not complete syndrome Plan: consider repeat EEG and MRI but doubt would change treatment continue Keppra, thiamine
[2017-07-21 20:52] VITALS: BP 166/68
[2017-07-22 06:46] VITALS: BP 154/72
--- NOTE | 2017-07-22 09:36 | PN- Housestaff ---
DonaldLakshmi Fletcher Young 07/22/17 0931: Subjective Follow-up For: Alcohol-related dementia Partial-complex seizure disorder Subjective: Patient's overnight CIWA 0-5, with episodes of agitation and received 0.5mg ativan overnight. Patient refused examination this morning. Review of Systems Constitutional: Reports: see HPI. Objective Last 24 Hrs of Vital Signs/I&O Vital Signs Date Time Temp Pulse Resp B/P B/P Pulse O2 O2 Flow FiO2 Mean Ox Delivery Rate 07/22 0854 98 148/80 07/22 0646 97.8 104 20 154/72 94 07/21 2104 166/68 07/21 2052 98.6 101 20 166/68 96 07/21 1624 Room Air Room Air 07/21 1336 97.9 80 20 136/78 96 Room Air Intake & Output 07/22 1600 07/22 0800 07/22 0000 Intake Total Output Total 150 450 Balance -150 -450 Number 1 Bowel Movements Output, Urine 150 450 Physical Exam General Appearance: Pt refused examination Current Medications: Current Medications Sig/Jessica Start time Last Medication Dose Route Stop Time Status Admin Acetaminophen 650 MG Q6P PRN 07/13 1345 AC 07/13 PO 2119 Clonidine 0.2 MG BID 07/13 2200 AC 07/22 PO 0854 Enoxaparin Sodium 40 MG DAILY 07/13 1348 AC 07/22 SC 0857 Famotidine 20 MG DAILY 07/14 1000 AC 07/22 PO 0855 Folic Acid 1 MG DAILY 07/14 1000 AC 07/22 PO 0855 Levetiracetam 500 MG BID 07/13 2200 AC 07/22 PO 0854 Lorazepam 0.5 MG Q12 07/22 1000 UNVr PO 07/29 0959 Lorazepam 0 Q1P PRN 07/20 1515 AC IV Lorazepam 0.5 MG Q8 07/19 2200 DC 07/21 PO 07/26 2159 2105 Multivitamins 1 TAB DAILY 07/14 1000 AC 07/22 PO 0855 Quetiapine Fumarate 50 MG BID 07/14 1000 AC 07/22 PO 0854 Thiamine HCl 100 MG DAILY 07/14 1000 AC 07/22 PO 0855 Assessment/Plan Assessment: Mr. Jiang is a 72 yo male with h/o ?seizures (?alcohol related), HTN, and EtoH abuse who was BIBA to [facility] after a witnessed seizure event at home by , with uncertainty of last drink as sami was a poor historian. However, alcohol level had been negative on admission. Patient denied headache, chest pain, dyspnea, abdominal pain on admission. Patient was admitted to [facility] in 01/2017 for similar seizure event and was sent home on Keppra. ER Course: VS: T 98.3, P 106-76, R 15, BP 189/93-151/77, PO 98% RA Physical exam unremarkable except Neuro: poor historian, oriented to place, no focal neuro deficits, however gait unsteady when attempting to ambulate to bathroom. Patient was admitted to general medicine for following management: #S/P Seizure likely complex partial PCP is Dr. Salas. Patient had left AMA from last admission, questionably compliance with Keppra after last discharge. - Continued Keppra 500mg bid. - Added Seroquel 50mg BID per Psych. - Neuro f.u recommended TSH and Ammonia, which were WNL. - EEG was limited study due to patient's combative behavior. however, No evident epileptiform abnormalities. If clinical suspicion of seizures is high a repeat recording with sedation should be considered. - Repeat EEG and MRI per neuro. However, based on patient's agitation status, it is very likely those two exams could not be done without sedatoin. [facility] attempt of repeated [facility] was [facility]. - Fall/Seizure precautions. - no major change in mental condition or cooperation - ativan changed to po yesterday - continue to monitor - discharge planning #EtOH-related dementia- unclear amount of alcohol the patient drinks. ED indicated that he had been drinking, however could not recall his last drink. - Continue CIWA's protocol - Continue IV Ativan 0.5mg tapered to q12, chganged to PO as patient taking meds , yesterday - Continue MVI, Folate, Thiamine protocol. - Pending insurance consult for to get Medicare Part B application. #HTN- With patient's current mental status, clonidine incompliance and possible clonidine withdrawal could not be unclear why patient is listed as being on Clonidine for BP control. Also unclear if the patient has been compliant. If he has been compliant would be concerned regarding potential clonidine withdrawal. - Continue Clonidine 0.2mg BID for now, however, patient refused meds from time to time. BP ranged from 130-160s. - Dr. Salas's record had no recent Keppra use on latest visit, possibly due to patient's incompliant. - Consider alternative anti-hypertensive as needed. DVT PPX Lovenox + ALPS regular diet Full Code Problem List: 1. Altered mental status Pain Ratin Pain Location: NA Pain Goal: Remain pain free Pain Plan: see AP Tomorrow's Labs & Rationales: NA, Patient's been refusing labs. Jonah Monge 07/22/17 1215: Attending MD Review Statement Attending Statement Attending MD Statement: examined this patient, discuss w/resident/PA/TELESALES MANAGER, agreed w/resident/PA/TELESALES MANAGER, discussed with family, reviewed EMR data (avail), discussed with nursing, discussed with case mgmt, reviewed images, amended to note Attending Assessment/Plan: Patient seen/examined bedside. Patient is admitted with acute encephalopathy related to seizure disorder likely complex partial seizure. He remains delirious with abnormal behavoiur and sitter bedside. 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 f/u neurology. Repeat EEG with sedation and MRI as per neurology. Patient remains delirious. He is aaox 2 today, orinted to place and self. Patient needs to follow up neurology as outpatient. SW consult for insurance issues. cont current care..
[2017-07-22 10:54] VITALS: BP 140/76
[2017-07-22 22:33] VITALS: BP 140/70
[2017-07-23 06:27] VITALS: BP 118/70
--- NOTE | 2017-07-23 08:18 | PN- Housestaff ---
DonaldLakshmi Fletcher Young 07/23/17 0814: Subjective Follow-up For: Alcohol-related dementia Partial-complex seizure disorder Subjective: Patient's overnight CIWA 0-3. Night team signed out that patient would like to leave AMA overnight with AO x 3, however patient refused to answer my questions this morning. Pt received 0.5mg Ativan at scheduled dose, no PRN dose given. Review of Systems Constitutional: Reports: see HPI. Objective Last 24 Hrs of Vital Signs/I&O Vital Signs Date Time Temp Pulse Resp B/P B/P Pulse O2 O2 Flow FiO2 Mean Ox Delivery Rate 07/23 626 97.6 79 20 118/70 94 07/22 2234 89 140/70 07/22 2233 98.7 89 18 140/70 95 07/22 1054 99.0 88 20 140/76 95 Room Air 07/22 0854 98 148/80 Intake & Output 07/23 1600 07/23 0800 07/23 0000 Intake Total 240 700 Output Total 125 Balance 240 575 Intake, IV 0 Intake, Oral 240 700 Number 0 Bowel Movements Output, Urine 125 Physical Exam General Appearance: Alert, No Acute Distress Cardiovascular: Regular Rate Lungs: Clear to Auscultation, Normal Air Movement Current Medications: Current Medications Sig/Jessica Start time Last Medication Dose Route Stop Time Status Admin Acetaminophen 650 MG Q6P PRN 07/13 1345 AC 07/13 PO 2119 Clonidine 0.2 MG BID 07/13 220 AC 07/22 PO 2234 Enoxaparin Sodium 40 MG DAILY 07/13 1348 AC 07/22 SC 0857 Famotidine 20 MG DAILY 07/14 1000 AC 07/22 PO 0855 Folic Acid 1 MG DAILY 07/14 1000 AC 07/22 PO 0855 Levetiracetam 500 MG BID 07/13 2200 AC 07/22 PO 2234 Lorazepam 0.5 MG Q12 07/22 1000 AC 07/22 PO 07/29 0959 2231 Lorazepam 0 Q1P PRN 07/20 1515 AC IV Lorazepam 0.5 MG Q8 07/19 2200 DC 07/21 PO 07/26 2159 2105 Multivitamins 1 TAB DAILY 07/14 1000 AC 07/22 PO 0855 Patient Medication 1 ED ONE ONE 07/22 1630 DC Teaching ED 07/22 1631 Quetiapine Fumarate 50 MG BID 07/14 1000 AC 07/22 PO 2234 Thiamine HCl 100 MG DAILY 07/14 1000 AC 07/22 PO 0855 Assessment/Plan Assessment: Mr. Jiang is a 72 yo male with h/o ?seizures (?alcohol related), HTN, and EtoH abuse who was BIBA to [facility] [facility] ER after a witnessed seizure event at home by , with uncertainty of last drink as patietn was a poor historian. However, alcohol level had been negative on admission. Patient denied headache, chest pain, dyspnea, abdominal pain on admission. Patient was admitted to [facility] in 01/2017 for similar seizure event and was sent home on Keppra. ER Course: VS: T 98.3, P 106-76, R 15, BP 189/93-151/77, PO 98% RA Physical exam unremarkable except Neuro: poor historian, oriented to place, no focal neuro deficits, however gait unsteady when attempting to ambulate to bathroom. Patient was admitted to general medicine for following management: #S/P Seizure likely complex partial PCP is Dr. Salas. Patient had left AMA from last admission, questionably compliance with Keppra after last discharge. - Continued Keppra 500mg bid. - Added Seroquel 50mg BID per Psych. - Neuro f.u recommended TSH and Ammonia, which were WNL. - EEG was limited study due to patient's combative behavior. however, No evident epileptiform abnormalities. If clinical suspicion of seizures is high a repeat recording with sedation should be considered. - Repeat EEG and MRI per neuro. However, based on patient's agitation status, it is very likely those two exams could not be done without sedatoin. Would coordinate with [facility] to sedate patient if first attempt of repeated EEG was unsuccessful. - Fall/Seizure precautions. - no major change in mental condition or cooperation - continue to monitor - discharge planning #EtOH-related dementia- unclear amount of alcohol the patient drinks. ED indicated that he had been drinking, however could not recall his last drink. - Continue CIWA's protocol - Continue PO Ativan 0.5mg tapered to qd and finish. - Continue MVI, Folate, Thiamine protocol. - Pending insurance consult for to get Medicare Part B application. #HTN- With patient's current mental status, clonidine incompliance and possible clonidine withdrawal could not be unclear why patient is listed as being on Clonidine for BP control. Also unclear if the patient has been compliant. If he has been compliant would be concerned regarding potential clonidine withdrawal. - Continue Clonidine 0.2mg BID for now, however, patient refused meds from time to time. BP ranged from 130-160s. - Dr. Salas's record had no recent Keppra use on latest visit, possibly due to patient's incompliant. - Consider alternative anti-hypertensive as needed. DVT PPX Lovenox + ALPS regular diet Full Code Problem List: 1. Altered mental status Pain Ratin Pain Location: NA Pain Goal: Remain pain free Pain Plan: see AP Tomorrow's Labs & Rationales: CBC/BEP Jonah Monge 07/23/17 1111: Attending MD Review Statement Attending Statement Attending MD Statement: examined this patient, discuss w/resident/PA/CAN CLOSING MACHINE TENDER, agreed w/resident/PA/CAN CLOSING MACHINE TENDER, discussed with family, reviewed EMR data (avail), discussed with nursing, discussed with case mgmt, reviewed images, amended to note Attending Assessment/Plan: Patient seen/examined bedside. Patient is admitted with acute encephalopathy related to seizure disorder likely complex partial seizure. 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 f/u neurology. Repeat EEG and MRI as per neurology. Patient remains delirious. He is aaox 2 today, orinted to place and self. Patient needs to follow up neurology as outpatient. SW consult for insurance issues. cont current care..
--- NOTE | 2017-07-23 10:03 | PN- Psychiatry ---
Assessment/Plan Impression: The patient will finish his alcohol detox lorazepam taper today. We appreciate Dr. Garcia's neurology note, acknowledging MRI result showing an old small left cerebellar infarct, and moderate small vessel ischemic changes. He also note the presence of characteristics of Korsakoff's syndrome. He also mentions the possibility of excitotoxic injury. The medical team reports that the patient is scheduled for a repeat MRI and EEG today. I offered the patient Outpatient Psychiatry, but he denies any symptoms of mood disorder, is not psychotic, so the benefit is questionable. He refused the offer. I also suggested that he stop drinking completely, which he does not agree with at this time. Suggestion: Continue alcohol detox lorazepam taper to off. We will continue to follow along. Thank you for this consult. Subjective Subjective: The patient is alert in bed with a Ware vest on. He speaks loudly at a normal rate. He is calm and cooperative, and states that he wants to go home today. He is oriented to person, month, year, and off by one day and date; he states he is in [facility]. He denies auditory or visual hallucinations and presents no monty delusions. His memory of family and recent history is spotty. He feels safe here and denies SI or HI. He does not know why he is in a Ware vest. Review of Systems Neurological/Psychological: Denies: anxiety, depressed. Objective Last 24 Hrs of Vital Signs/I&O Vital Signs Date Time Temp Pulse Resp B/P B/P Pulse O2 O2 Flow FiO2 Mean Ox Delivery Rate 07/23 626 97.6 79 20 118/70 94 07/22 2234 89 140/70 07/22 2233 98.7 89 18 140/70 95 07/22 1054 99.0 88 20 140/76 95 Room Air Intake & Output 07/23 1600 07/23 0800 07/23 0000 Intake Total 240 700 Output Total 125 Balance 240 575 Intake, IV 0 Intake, Oral 240 700 Number 0 Bowel Movements Output, Urine 125 Physical Exam: Not performed Physical Exam General Appearance: no apparent distress, alert, awake, comfortable Neurologic/Psychiatric: awake, alert Current Medications: Current Medications Sig/Jessica Start time Last Medication Dose Route Stop Time Status Admin Acetaminophen 650 MG Q6P PRN 07/13 1345 AC 07/13 PO 2118 Clonidine 0.2 MG BID 07/13 2199 AC 07/22 PO 2234 Enoxaparin Sodium 40 MG DAILY 07/13 1348 AC 07/22 SC 0857 Famotidine 20 MG DAILY 07/14 1000 AC 07/22 PO 0855 Folic Acid 1 MG DAILY 07/14 1000 AC 07/22 PO 0855 Levetiracetam 500 MG BID 07/13 2199 AC 07/22 PO 2234 Lorazepam 0.5 MG Q12 07/22 1000 AC 07/22 PO 07/29 0959 2231 Lorazepam 0 Q1P PRN 07/20 1515 AC IV Multivitamins 1 TAB DAILY 07/14 1000 AC 07/22 PO 0855 Patient Medication 1 ED ONE ONE 07/22 1630 DC Teaching ED 07/22 1631 Quetiapine Fumarate 50 MG BID 07/14 1000 AC 07/22 PO 223 Thiamine HCl 100 MG DAILY 07/14 1000 AC 07/22 PO 0855 Results Last 24 Hrs of Labs/Mics: Laboratory Tests 07/22 07/21 0600 0700 Chemistry Sodium (137 - 145 mmol/L) Cancelled 141 Potassium (3.5 - 5.1 mmol/L) Cancelled 4.2 Chloride (98 - 107 mmol/L) Cancelled 105 Carbon Dioxide (22 - 30 mmol/L) Cancelled 28 Anion Gap (5 - 16) Cancelled 8 BUN (9 - 20 mg/dL) Cancelled 12 Creatinine (0.7 - 1.2 mg/dL) Cancelled 0.8 Estimated GFR (>60 ml/min) > 60 BUN/Creatinine Ratio (7 - 25 %) Cancelled 15.0
[2017-07-23 10:23] VITALS: BP 116/72
--- NOTE | 2017-07-23 13:25 | ELECTROENCEPHALOGRAM REPORT ---
See Addendum Electroencephalogram Report Electroencephalogram Results Date of service: 07/23/17 Attending MD: Jonah Monge MD Project Buyer: Danny Benavides EEG Number: [id number] Test Utilizes: 10-20 system, 21 lead 18 channel digital recording Pertinent Hx/Physical/Neuro Findings/Clin Diagnosis: Unresponsiveness. Rule out seizure. Inpatient Medications: Current Medications Sig/Jessica Start time Last Medication Dose Route Stop Time Status Admin Acetaminophen 650 MG Q6P PRN 07/13 1345 AC 07/13 PO 2119 Clonidine 0.2 MG BID 07/13 2200 AC 07/23 PO 1125 Diazepam 2 MG ONCE ONE 07/23 1030 DC 07/23 PO 07/23 1031 1124 Enoxaparin Sodium 40 MG DAILY 07/13 1348 AC 07/23 SC 1126 Famotidine 20 MG DAILY 07/14 1000 AC 07/23 PO 1125 Folic Acid 1 MG DAILY 07/14 1000 AC 07/23 PO 1125 Levetiracetam 500 MG BID 07/13 2200 AC 07/23 PO 1125 Lorazepam 0.5 MG Q12 07/22 1000 DC 07/23 PO 07/29 0959 1128 Lorazepam 0 Q1P PRN 07/20 1515 AC IV Multivitamins 1 TAB DAILY 07/14 1000 AC 07/23 PO 1125 Patient Medication 1 ED ONE ONE 07/22 1630 DC Teaching ED 07/22 1631 Quetiapine Fumarate 50 MG BID 07/14 1000 AC 07/23 PO 1124 Thiamine HCl 100 MG DAILY 07/14 1000 AC 07/23 PO 1128 Interpretation: The predominant posterior background rhythm consists of low-voltage 8 Inpatient Psychiatry activity. Lower voltage faster frequencies were seen over the anterior head regions bilaterally. Generalized slowing of the background is seen during periods of drowsiness. No focal, paroxysmal or lateralizing features were appreciated. Hyperventilation was deferred. Photic stimulation induced no abnormalities. Impression: EEG is within normal limits in the awake and drowsy state. No focal or epileptiform features were noted
[2017-07-23 13:38] VITALS: BP 130/82
--- NOTE | 2017-07-23 13:45 | MRI REPORT ---
EXAMINATION: MR BRAIN WITHOUT CONTRAST CLINICAL INFORMATION: 72-year-old man with seizure and delirium. COMPARISON: 07/13/[address], 02/21/2017 brain MRI TECHNIQUE: MRI of the brain without contrast was obtained using routine sequences. FINDINGS: Scattered patchy and punctate foci of increased T2 signal are again seen throughout the supratentorial white matter, a nonspecific finding that most likely reflects moderate to severe chronic microvascular ischemic changes. Areas of chronic lacunar infarction are also visible in the left cerebellum and both thalami. Assessment of the hippocampal formations is somewhat limited without dedicated coronal imaging, although there has been no obvious interval change in previously described left sided mesial temporal sclerosis. No focal reduced diffusion is seen to suggest acute or subacute cerebral ischemia. No intracranial mass, intracerebral edema, intra-axial blood products, midline shift, or extra-axial collection is visualized. The ventricles and sulcal spaces appear normal. Normal arterial and venous vascular flow voids are present. Moderate polypoid mucosal thickening is seen in the maxillary sinuses and mild mucosal thickening is present in the ethmoid air cells. IMPRESSION: Stable MR appearance of the brain, again demonstrating moderate to severe chronic small vessel ischemic changes and left sided mesial temporal sclerosis.
[2017-07-23 16:00] VITALS: BP 130/82
[2017-07-23 21:42] VITALS: BP 148/88
[2017-07-24 07:06] VITALS: BP 198/92
[2017-07-24 07:30] VITALS: BP 158/80
--- NOTE | 2017-07-24 08:30 | PN- Housestaff ---
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 However this morning patient wanted to leave and would not want any staff to disturb him before 10:30PM. Review of Systems Constitutional: Reports: see HPI. Objective Last 24 Hrs of Vital Signs/I&O Vital Signs Date Time Temp Pulse Resp B/P B/P Pulse O2 O2 Flow FiO2 Mean Ox Delivery Rate 07/24 07 90 158/80 07/24 07 90 158/80 07/24 0706 98.0 110 20 198/92 92 07/23 2142 98.0 116 20 148/88 95 Room Air 07/23 2059 116 148/88 07/23 1600 98.5 112 20 130/82 07/23 1338 98.5 112 20 130/82 96 Room Air 07/23 1125 78 140/78 Intake & Output 07/24 1600 07/24 0800 07/24 0000 Intake Total 240 600 Output Total Balance 240 600 Intake, Oral 240 600 Physical Exam General Appearance: Refused examination. Current Medications: Current Medications Sig/Jessica Start time Last Medication Dose Route Stop Time Status Admin Acetaminophen 650 MG Q6P PRN 07/13 1345 AC 07/13 PO 2119 Clonidine 0.2 MG BID 07/13 2200 AC 07/24 PO 0729 Diazepam 2 MG ONCE ONE 07/23 1030 DC 07/23 PO 07/23 1031 1124 Enoxaparin Sodium 40 MG DAILY 07/13 1348 AC 07/24 SC 0729 Famotidine 20 MG DAILY 07/14 1000 AC 07/24 PO 0727 Folic Acid 1 MG DAILY 07/14 1000 AC 07/24 PO 0727 Levetiracetam 500 MG BID 07/13 2200 AC 07/24 PO 0727 Lorazepam 0.5 MG Q12 07/22 1000 DC 07/23 PO 07/29 0959 1128 Lorazepam 0 Q1P PRN 07/20 1515 AC IV Multivitamins 1 TAB DAILY 07/14 1000 AC 07/24 PO 0727 Quetiapine Fumarate 50 MG BID 07/14 1000 AC 07/24 PO 0727 Thiamine HCl 100 MG DAILY 07/14 1000 AC 07/24 PO 0727 Assessment/Plan Assessment: Mr. Jiang is a 72 yo male with h/o ?seizures (?alcohol related), HTN, and EtoH abuse who was BIBA to [facility] after a witnessed seizure event at home by , with uncertainty of last drink as patietn was a poor historian. However, alcohol level had been negative on admission. Patient denied headache, chest pain, dyspnea, abdominal pain on admission. Patient was admitted to [facility] in 01/2017 for similar seizure event and was sent home on Keppra. ER Course: VS: T 98.3, P 106-76, R 15, BP 189/93-151/77, PO 98% RA Physical exam unremarkable except Neuro: poor historian, oriented to place, no focal neuro deficits, however gait unsteady when attempting to ambulate to bathroom. Patient was admitted to general medicine for following management: #S/P Seizure likely complex partial PCP is Dr. Salas. Patient had left AMA from last admission, questionably compliance with Keppra after last discharge. - Continued Keppra 500mg bid. - Added Seroquel 50mg BID per Psych. - Neuro f.u recommended TSH and Ammonia, which were WNL. - EEG was limited study due to patient's combative behavior. however, No evident epileptiform abnormalities. If clinical suspicion of seizures is high a repeat recording with sedation should be considered. - Repeat EEG 07/23 showed: Abnormal EEG due to mild generalized slowing of the background rhythm consistent with diffuse cerebral dysfunction. No focal or epileptiform features were identified. - Repeat MRI 07/23 showed: Stable MR appearance of the brain, again demonstrating moderate to severe chronic small vessel ischemic changes and left sided mesial temporal sclerosis. - Pending Neuro followup for above results. - Fall/Seizure precautions. - continue to monitor - discharge planning #EtOH-related dementia- unclear amount of alcohol the patient drinks. ED indicated that he had been drinking, however could not recall his last drink. - Continue CIWA's protocol - Completed Ativan taper. Overnight CIWA 0-1 - Continue MVI, Folate, Thiamine protocol. - Pending insurance consult for to get Medicare Part B application. #HTN- With patient's current mental status, clonidine incompliance and possible clonidine withdrawal could not be unclear why patient is listed as being on Clonidine for BP control. Also unclear if the patient has been compliant. If he has been compliant would be concerned regarding potential clonidine withdrawal. - Continue Clonidine 0.2mg BID for now, however, patient refused meds from time to time. BP ranged from 130-160s. - Dr. Salas's record had no recent Keppra use on latest visit, possibly due to patient's incompliant. - Consider alternative anti-hypertensive as needed. DVT PPX Lovenox + ALPS regular diet Full Code Problem List: 1. Altered mental status 2. Seizure Pain Ratin Pain Location: NA Pain Goal: Remain pain free Pain Plan: see AP Tomorrow's Labs & Rationales: NA MariposaJonah wong 07/24/17 1246: Attending MD Review Statement Attending Statement Attending MD Statement: examined this patient, discuss w/resident/PA/MICROBIOLOGY TECHNICIAN, agreed w/resident/PA/MICROBIOLOGY TECHNICIAN, discussed with family, reviewed EMR data (avail), discussed with nursing, discussed with case mgmt, reviewed images, amended to note Attending Assessment/Plan: Patient seen/examined bedside. Patient is admitted with acute encephalopathy related to seizure disorder likely complex partial seizure. 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 f/u neurology. EEG and MRI as per neurology suugestive medial temoporal lobe sclerosis. He is aaox 2 today, orinted to place and self. Patient needs to follow up neurology as outpatient. SW consult for insurance issues. cont current care..
[2017-07-24 13:00] VITALS: BP 148/80
--- NOTE | 2017-07-24 13:17 | PN- Psychiatry ---
Assessment/Plan Impression: The patient would not participate in an interview today, being argumentative, and stating that he wishes to leave the hospital. 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 The patient does not currently have an IV, and the IM route may be necessary. Suggestion: 1. Please in initiate thiamin therapy for Wernicke-Korsakoff syndrome, as noted above. We will revisit the patient tomorrow. Subjective Subjective: The patient is speaking very loudly, asking why he cannot go home. He refuses to answer any questions, except reports that the location is [place] and the month is April. Objective Last 24 Hrs of Vital Signs/I&O Vital Signs Date Time Temp Pulse Resp B/P B/P Pulse O2 O2 Flow FiO2 Mean Ox Delivery Rate 07/24 0730 90 158/80 07/24 07 90 158/80 07/24 0706 98.0 110 20 198/92 92 07/23 2142 98.0 116 20 148/88 95 Room Air 07/23 2059 116 148/88 07/23 1600 98.5 112 20 130/82 07/23 1338 98.5 112 20 130/82 96 Room Air Intake & Output 07/24 1600 07/24 0800 07/24 0000 Intake Total 240 600 Output Total Balance 240 600 Intake, Oral 240 600 Physical Exam: Not performed Physical Exam General Appearance: anxious, mild distress Neurologic/Psychiatric: awake, alert Current Medications: Current Medications Sig/Jessica Start time Last Medication Dose Route Stop Time Status Admin Acetaminophen 650 MG Q6P PRN 07/13 1345 AC 07/13 PO 2118 Clonidine 0.2 MG BID 07/13 2200 AC 07/24 PO 728 Enoxaparin Sodium 40 MG DAILY 07/13 1348 AC 07/24 SC 07 Famotidine 20 MG DAILY 07/14 1000 AC 07/24 PO 726 Folic Acid 1 MG DAILY 07/14 1000 AC 07/24 PO 726 Levetiracetam 500 MG BID 07/13 2200 AC 07/24 PO 726 Lorazepam 0 Q1P PRN 02/18 1515 AC IV Multivitamins 1 TAB DAILY 07/14 1000 AC 07/24 PO 07 Quetiapine Fumarate 50 MG BID 07/14 1000 AC 07/24 PO 726 Thiamine HCl 250 MG TID 07/27 1000 AC Sodium Chloride 100 ML IV 07/29 2230 Thiamine HCl 500 MG TID 07/24 1600 AC Sodium Chloride 250 ML IV 07/26 2301 Thiamine HCl 100 MG DAILY 07/14 1000 DC 07/24 PO 07
--- NOTE | 2017-07-24 13:41 | PN- Neurology ---
Subjective Subjective: No new complaints. No seizures Objective Vital Signs and I&Os Vital Signs Date Time Temp Pulse Resp B/P B/P Pulse O2 O2 Flow FiO2 Mean Ox Delivery Rate 07/24 0730 90 158/80 07/24 07 90 158/80 07/24 0706 98.0 110 20 198/92 92 07/23 2142 98.0 116 20 148/88 95 Room Air 07/23 2059 116 148/88 07/23 1600 98.5 112 20 130/82 07/23 1338 98.5 112 20 130/82 96 Room Air Intake & Output 07/24 1600 07/24 0800 07/24 0000 07/23 1600 07/23 0800 07/23 0000 Intake Total 240 600 800 240 700 Output Total 800 125 Balance 240 600 0 240 575 Intake, IV 0 0 Intake, Oral 240 600 800 240 700 Number 0 1 0 Bowel Movements Output, Urine 800 125 awake , alert, in no distress Pressured speech, hard to derail OOB and ambulatory Current Medications: Current Medications Sig/Jessica Start time Last Medication Dose Route Stop Time Status Admin Acetaminophen 650 MG Q6P PRN 07/13 1345 AC 07/13 PO 2119 Clonidine 0.2 MG BID 07/13 2200 AC 07/24 PO 0729 Enoxaparin Sodium 40 MG DAILY 07/13 1348 AC 07/24 SC 0729 Famotidine 20 MG DAILY 07/14 1000 AC 07/24 PO 0727 Folic Acid 1 MG DAILY 07/14 1000 AC 07/24 PO 0727 Levetiracetam 500 MG BID 07/13 2200 AC 07/24 PO 0727 Lorazepam 0 Q1P PRN 07/20 1515 AC IV Multivitamins 1 TAB DAILY 07/14 1000 AC 07/24 PO 0727 Quetiapine Fumarate 50 MG BID 07/14 1000 AC 07/24 PO 0727 Thiamine HCl 250 MG TID 07/27 1000 AC Sodium Chloride 100 ML IV 07/29 2230 Thiamine HCl 500 MG TID 07/24 1600 AC Sodium Chloride 250 ML IV 07/26 2301 Thiamine HCl 100 MG DAILY 07/14 1000 DC 07/24 PO 0727 Assessment/Plan Assessment: Encephalopathy delirium probable underlying dementia Hx. of seizure EEG slow. No epileptiform features Plan: Do not believe that keppra an ideal drug for him with its potential for behavioral changes. Would begin Depakote 500 bid which may help with mood control. Valproate level in 10 days. When therapeutic, would withdraw keppra.
[2017-07-24 22:00] VITALS: BP 158/94
[2017-07-24 22:15] VITALS: BP 160/90
--- NOTE | 2017-07-25 02:08 | Event Note ---
Event Note Event Note: I was paged by the nurse as thept heart rate was 135, Blood pressure was 160/90, very agitated and angery however his CIWA score was 2. I examined the patient who denied any C/O except for being botherd by hospital staff in the room, physical exma was normal.I ordered EKG and trops, explained the patient the risks of tachycardia and the urgency of EKG and trops as he might need to be tranferred to the Cardiology dep for further monitoring, however the patinet refused initially and then only agreed to get the EKG . , EKG showed sinus tachycardia HR 125, will follow up
--- NOTE | 2017-07-25 07:23 | PN- Housestaff ---
DonaldLakshmi 07/25/17721: Subjective Follow-up For: Vascular Dementia? Temporal lobe Epilepsy/Partial Complex seizure disorder Subjective: Overnight CIWA 0-4 mostly from agitation/orientation. Not much changed from previous days. Patient refused us to enter the room. Review of Systems Constitutional: Reports: see HPI. Objective Last 24 Hrs of Vital Signs/I&O Vital Signs Date Time Temp Pulse Resp B/P B/P Pulse O2 O2 Flow FiO2 Mean Ox Delivery Rate 07/25 0746 97.9 130 18 120/90 07/25 0728 97.9 130 18 120/90 98 Room Air 07/24 2214 97.9 135 20 160/90 95 Room Air 07/24 220 143 20 158/94 07/24 2132 135 160/90 07/24 1300 98.0 90 20 148/80 97 Room Air Intake & Output 07/25 1600 07/25 0800 07/25 0000 Intake Total 240 800 Output Total 300 900 Balance -60 -100 Intake, IV 0 Intake, Oral 240 800 Number 0 Bowel Movements Output, Urine 300 900 Physical Exam General Appearance: Pt refused examination. Current Medications: Current Medications Sig/Jessica Start time Last Medication Dose Route Stop Time Status Admin Acetaminophen 650 MG Q6P PRN 07/13 1345 AC 07/13 PO 2118 Clonidine 0.2 MG BID 07/13 2199 AC 07/24 PO 213 Divalproex Sodium 500 MG BID 07/24 2200 AC 07/24 PO 213 Enoxaparin Sodium 40 MG DAILY 07/13 1348 AC 07/24 SC 0729 Famotidine 20 MG DAILY 07/14 1000 AC 07/24 PO 07 Folic Acid 1 MG DAILY 07/14 1000 AC 07/24 PO 07 Levetiracetam 500 MG BID 07/13 2200 AC 07/24 PO 213 Lorazepam 0 Q1P PRN 07/20 1515 AC IV Multivitamins 1 TAB DAILY 07/14 1000 AC 07/24 PO 07 Quetiapine Fumarate 50 MG BID 07/14 1000 AC 07/24 PO 213 Thiamine HCl 250 MG TID 07/27 1000 AC Sodium Chloride 100 ML IV 07/29 223 Thiamine HCl 500 MG TID 07/24 1600 AC Sodium Chloride 250 ML IV 07/26 230 Thiamine HCl 100 MG DAILY 07/14 1000 DC 07/24 PO 726 Assessment/Plan Assessment: Mr. Jiang is a 72 yo male with h/o ?seizures (?alcohol related), HTN, and EtoH abuse who was BIBA to [facility] after a witnessed seizure event at home by , with uncertainty of last drink as patietn was a poor historian. However, alcohol level had been negative on admission. Patient denied headache, chest pain, dyspnea, abdominal pain on admission. Patient was admitted to [facility] in 01/2017 for similar seizure event and was sent home on Keppra. ER Course: VS: T 98.3, P 106-76, R 15, BP 189/93-151/77, PO 98% RA Physical exam unremarkable except Neuro: poor historian, oriented to place, no focal neuro deficits, however gait unsteady when attempting to ambulate to bathroom. Patient was admitted to general medicine for following management: #S/P Seizure likely complex partial PCP is Dr. Salas. Patient had left AMA from last admission, questionably compliance with Keppra after last discharge. - Continued Keppra 500mg bid. Will bridge with Depakote 500mg BID and recheck Depakote level in 10 days, if range within therapeutical range, will discontinue Keppra as it has potential to cause mental instablity. - Added Seroquel 50mg BID per Psych. 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 Patient rejected IV access. Will continue the PO regimen. - Neuro f.u recommended TSH and Ammonia, which were WNL. - EEG was limited study due to patient's combative behavior. however, No evident epileptiform abnormalities. If clinical suspicion of seizures is high a repeat recording with sedation should be considered. - Repeat EEG 07/23 showed: Abnormal EEG due to mild generalized slowing of the background rhythm consistent with diffuse cerebral dysfunction. No focal or epileptiform features were identified. - Repeat MRI 07/23 showed: Stable MR appearance of the brain, again demonstrating moderate to severe chronic small vessel ischemic changes and left sided mesial temporal sclerosis. - Fall/Seizure precautions. - continue to monitor - discharge planning #EtOH-related dementia/delirum- unclear amount of alcohol the patient drinks prior this admission. ED indicated that he had been drinking, however could not recall his last drink. - Patient's mental status had not changed much upon admission, and is not a candidate of safe discharge. The best discharge disposition would be geriatric/ psych unit however insurance issue as below may have hindered the process. Patient is not a candidate for STR with underlying mental instability/delirium. - Continue CIWA's protocol - Completed Ativan taper. - Continue MVI, Folate, Thiamine protocol. - Pending insurance consult for to get Medicare Part B application. #HTN- With patient's current mental status, clonidine incompliance and possible clonidine withdrawal could not be unclear why patient is listed as being on Clonidine for BP control. Also unclear if the patient has been compliant. If he has been compliant would be concerned regarding potential clonidine withdrawal. - Continue Clonidine 0.2mg BID for now, however, patient refused meds from time to time. BP ranged from 130-160s. - May reevaluate if patient to be discharged on this meds. If not, will taper per DC planning. - Dr. Salas's record had no recent Keppra use on latest visit, possibly due to patient's incompliant. - Consider alternative anti-hypertensive as needed. DVT PPX Lovenox + ALPS regular diet Full Code Problem List: 1. Altered mental status Pain Ratin Pain Location: NA Pain Goal: Remain pain free Pain Plan: see AP Tomorrow's Labs & Rationales: NEETU Jonah Monge 07/25/17 1118: Attending MD Review Statement Attending Statement Attending MD Statement: examined this patient, discuss w/resident/PA/GAS UTILITY WORKER, agreed w/resident/PA/GAS UTILITY WORKER, discussed with family, reviewed EMR data (avail), discussed with nursing, discussed with case mgmt, reviewed images, amended to note Attending Assessment/Plan: Patient seen/examined bedside. Patient is admitted with acute encephalopathy related to seizure disorder likely complex partial seizure and medial temporal lobe sclerosis. Neurology appreciated and initially recommend to continue keppra for complex partial seziures based on previous MRI findings and hippocampal involvement and now recommended to chnage to depakote. Check valproate levels as per neuro. EEG and MRI as per neurology suugestive medial temoporal lobe sclerosis. He is aaox 2, orinted to place and self, walkng with PT. Patient needs to follow up neurology as outpatient. SW consult for insurance issues. cont current care..
[2017-07-25 07:28] VITALS: BP 120/90
[2017-07-25 15:14] VITALS: BP 180/98
[2017-07-25 22:53] VITALS: BP 138/70
[2017-07-26 07:29] VITALS: BP 160/80
[2017-07-26 08:26] VITALS: BP 150/80
--- NOTE | 2017-07-26 12:18 | PN- Housestaff ---
LucilaShawn 07/26/17 1218: Subjective Follow-up For: Temporal lobe epilepsy Dementia Non-adherence to anticonvulsion medications Complaints: no complaints Subjective: Review the patient seated comfortably on the bed the patient is very talkative not oriented to time place or person and has a sitter in. He could not answer any of my questions GIVING long extended tangential speeches. Review of Systems Constitutional: Denies: chills. Comments: Patient could not answer any questions regarding review of systems Objective Last 24 Hrs of Vital Signs/I&O Vital Signs Date Time Temp Pulse Resp B/P B/P Pulse O2 O2 Flow FiO2 Mean Ox Delivery Rate 07/26 1003 90 150/80 07/26 0826 96 150/80 07/26 0729 97.6 113 20 160/80 97 Room Air 07/26 0138 105 07/25 2253 98.3 119 18 138/70 94 Room Air 07/25 1514 98.0 117 21 180/98 97 Room Air Intake & Output 07/26 1600 07/26 0800 07/26 0000 Intake Total 240 600 Output Total Balance 240 600 Intake, Oral 240 600 Number 1 Bowel Movements Physical Exam General Appearance: Alert, No Acute Distress, Not oriented to time, place or person Skin: No Rashes Skin Temp/Moisture Exam: Warm/Dry Sepsis Skin Exam (color): Normal for Ethnicity HEENT: Atraumatic, Mucous Membr. moist/pink Neck: Supple, No JVD Cardiovascular: Regular Rate, Normal S1, Normal S2 Lungs: Clear to Auscultation, Normal Air Movement Abdomen: Normal Bowel Sounds, Soft Neurological: Normal Speech, tremors on upper limbs Extremities: No Clubbing, No Cyanosis Current Medications: Current Medications Sig/Jessica Start time Last Medication Dose Route Stop Time Status Admin Acetaminophen 650 MG Q6P PRN 07/13 1345 AC 07/13 PO 2119 Clonidine 0.2 MG BID 07/13 2199 AC 07/26 PO 1003 Divalproex Sodium 500 MG BID 07/24 220 AC 07/26 PO 1003 Enoxaparin Sodium 40 MG DAILY 07/13 1348 AC 07/26 SC 1003 Famotidine 20 MG DAILY 07/14 1000 AC 07/26 PO 1003 Folic Acid 1 MG DAILY 07/14 1000 AC 07/26 PO 1004 Levetiracetam 500 MG BID 07/13 2199 AC 07/26 PO 1003 Lorazepam 0 Q1P PRN 07/20 1515 AC IV Multivitamins 1 TAB DAILY 07/14 1000 AC 07/26 PO 1003 Quetiapine Fumarate 50 MG BID 07/14 1000 AC 07/26 PO 1003 Thiamine HCl 250 MG TID 07/28 1000 CAN Sodium Chloride 100 ML IV 07/30 2230 Thiamine HCl 250 MG TID 07/27 1000 DC Sodium Chloride 100 ML IV 07/29 2230 Thiamine HCl 100 MG DAILY 07/26 1145 AC PO Thiamine HCl 500 MG TID 07/25 1600 AC 07/26 Sodium Chloride 250 ML IV 07/27 2301 1049 Orders CIWA Score (last 24 hrs): Highest CIWA score for mostly 0 to 1 Assessment/Plan Assessment: This is a 72 yo male with h/o ?seizures (?alcohol related), HTN, and EtoH abuse who was BIBA to [facility] after a witnessed seizure event at home by , with uncertainty of last drink as patient was a poor historian. However, alcohol level had been negative on admission. Patient denied headache, chest pain, dyspnea, abdominal pain on admission. Patient was admitted to his anticonvulsion levels on admission were subtherapeutic. S/P Seizure likely complex partial PCP is Dr. Salas. Patient had left AMA from last admission, questionably compliance with Keppra after last discharge. Continued Keppra 500mg bid. Will bridge with Depakote 500mg BID and recheck Depakote level in 10 days, if range within therapeutical range, will discontinue Keppra as it has potential to cause mental instablity. While in the [place] the patient was started on Seroquel 50mg BID per Psych. The patient was started on IV thiamine but the patient has not been taking it consistently refusing to have his IV accessed. Patient will be continued on oral thiamine. Per the primary team this patient is awaiting [facility] placement. Continue to monitor for any seizures EtOH-related dementia/delirum- unclear amount of alcohol the patient drinks prior this admission. ED indicated that he had been drinking, however could not recall his last drink. - Patient's mental status had not changed much upon admission, and is not a candidate of safe discharge. The best discharge disposition would be geriatric/ psych unit however insurance issue as below may have hindered the process. Patient is not a candidate for STR with underlying mental instability/delirium. Continue CIWA's protocol. continue MVI, Folate, Thiamine protocol. Continue with safety monitoring HTN Patient blood pressure has been controlled highest 150/90 in the last 24 hours he is on clonidine 0.2 mg twice a day. Continue to monitor vital signs and continue with clonidine for hypertension. DVT PPX Lovenox + ALPS Problem List: 1. Seizure 2. Lactic acidosis Pain Ratin Pain Location: nONE Pain Goal: Remain pain free Pain Plan: Tylenol Tomorrow's Labs & Rationales: BEP DVT/Prophylaxis: pharmacological Ceci Stafford 07/26/17 1746: Attending MD Review Statement Attending Statement Attending MD Statement: examined this patient, discuss w/resident/PA/LEADED GLASS INSTALLER, agreed w/resident/PA/LEADED GLASS INSTALLER, reviewed EMR data (avail), discussed with nursing Attending Assessment/Plan: Agree with the above assessment and plan. switch thiamine to po as pt refusing IV meds. Awaiting placement.
[2017-07-26 14:23] VITALS: BP 138/70
[2017-07-26 22:00] VITALS: BP 140/80
[2017-07-26 23:28] VITALS: BP 140/80
[2017-07-27 06:00] VITALS: BP 112/70
[2017-07-27 07:01] VITALS: BP 112/70
--- NOTE | 2017-07-27 08:20 | PN- Housestaff ---
Larry Concepcion MD,[facility] [address] 07/27/17 0819: Subjective Follow-up For: Vascular Dementia? Temporal lobe Epilepsy/Partial Complex seizure disorde Subjective: Patient visited today, was sitting in bed comfortably in no acute distress, was alert, oriented to date and place. No fever or chills, no shortness of breathing, no chest pain, no other events. Sitter at the bedside. responces not related to answers. he forgets material and used that he sees in TV and he is using a piece of paper to write down in case he needs them in future. He reported improved appetite. Patient refused IV and was given by mouth thiamine Review of Systems Constitutional: Reports: see HPI. Objective Last 24 Hrs of Vital Signs/I&O Vital Signs Date Time Temp Pulse Resp B/P B/P Pulse O2 O2 Flow FiO2 Mean Ox Delivery Rate 07/27 0701 97.9 94 18 112/70 99 Room Air 07/27 0600 97.9 94 18 112/70 07/26 2328 97.6 95 20 140/80 98 Room Air 07/26 2211 95 140/80 07/26 2200 95 140/80 07/26 1423 98.1 92 18 138/70 94 Room Air Intake & Output 07/27 1600 07/27 0800 07/27 0000 Intake Total 210 1120 Output Total 900 Balance 210 220 Intake, IV 10 520 Intake, Oral 200 600 Number 0 Bowel Movements Output, Urine 900 Physical Exam General Appearance: Alert, Cooperative, No Acute Distress, partially oriented, disheveled Skin: No Significant Lesion Skin Temp/Moisture Exam: Warm/Dry Sepsis Skin Exam (color): Normal for Ethnicity HEENT: Atraumatic, EOMI, Mucous Membr. moist/pink Cardiovascular: Regular Rate, Normal S1, Normal S2 Lungs: Clear to Auscultation Abdomen: Soft, No Tenderness Neurological: Strength at 5/5 X4 Ext Current Medications: Current Medications Sig/Jessica Start time Last Medication Dose Route Stop Time Status Admin Acetaminophen 650 MG Q6P PRN 07/13 1345 AC 07/13 PO 211 Clonidine 0.2 MG BID 07/13 2199 AC 07/27 PO 0813 Divalproex Sodium 500 MG BID 07/24 2199 AC 07/27 PO 0814 Enoxaparin Sodium 40 MG DAILY 07/13 1348 AC 07/27 SC 0814 Famotidine 20 MG DAILY 07/14 1000 AC 07/27 PO 0813 Folic Acid 1 MG DAILY 07/14 1000 AC 07/27 PO 0814 Levetiracetam 500 MG BID 07/13 2200 AC 07/27 PO 0814 Lorazepam 0 Q1P PRN 07/20 1515 AC IV Multivitamins 1 TAB DAILY 07/14 1000 AC 07/27 PO 0814 Quetiapine Fumarate 50 MG BID 07/14 1000 AC 07/27 PO 0814 Thiamine HCl 250 MG TID 07/28 1000 CAN Sodium Chloride 100 ML IV 07/30 2230 Thiamine HCl 250 MG TID 07/27 1000 DC Sodium Chloride 100 ML IV 07/29 2230 Thiamine HCl 100 MG DAILY 07/26 1145 AC 07/27 PO 0813 Thiamine HCl 500 MG TID 07/25 1600 AC 07/26 Sodium Chloride 250 ML IV 07/27 2301 2208 Last 24 Hrs of Lab/Cecilio Results Last 24 Hrs of Labs/Mics: Mr. Jiang is a 72 yo male with h/o ?seizures (?alcohol related), HTN, and EtoH abuse who was BIBA to [facility] after a witnessed seizure event at home by , with uncertainty of last drink as sami was a poor historian. However, alcohol level had been negative on admission. Patient denied headache, chest pain, dyspnea, abdominal pain on admission. Patient was admitted to [facility] in 01/2017 for similar seizure event and was sent home on Keppra. ER Course: VS: T 98.3, P 106-76, R 15, BP 189/93-151/77, PO 98% RA Physical exam unremarkable except Neuro: poor historian, oriented to place, no focal neuro deficits, however gait unsteady when attempting to ambulate to bathroom. Patient was admitted to general medicine for following management: #S/P Seizure likely complex partial PCP is Dr. Salas. Patient had left AMA from last admission, questionably compliance with Keppra after last discharge. - Continued Keppra 500mg bid. Will bridge with Depakote 500mg BID and recheck Depakote level in 10 days, if range within therapeutical range, will discontinue Keppra as it has potential to cause mental instablity. - Added Seroquel 50mg BID per Psych. 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 Patient rejected IV access. Will continue the PO regimen. - Neuro f.u recommended TSH and Ammonia, which were WNL. - EEG was limited study due to patient's combative behavior. however, No evident epileptiform abnormalities. If clinical suspicion of seizures is high a repeat recording with sedation should be considered. - Repeat EEG 07/23 showed: Abnormal EEG due to mild generalized slowing of the background rhythm consistent with diffuse cerebral dysfunction. No focal or epileptiform features were identified. - Repeat MRI 07/23 showed: Stable MR appearance of the brain, again demonstrating moderate to severe chronic small vessel ischemic changes and left sided mesial temporal sclerosis. - Fall/Seizure precautions. - continue to monitor - discharge planning #EtOH-related dementia/delirum- unclear amount of alcohol the patient drinks prior this admission. ED indicated that he had been drinking, however could not recall his last drink. - Patient's mental status had not changed much upon admission, and is not a candidate of safe discharge. The best discharge disposition would be geriatric/ psych unit however insurance issue as below may have hindered the process. Patient is not a candidate for STR with underlying mental instability/delirium. - Continue CHAS's protocol - Completed Ativan taper. - Continue MVI, Folate, Thiamine protocol. - Pending insurance consult for to get Medicare Part B application. #HTN- With patient's current mental status, clonidine incompliance and possible clonidine withdrawal could not be unclear why patient is listed as being on Clonidine for BP control. Also unclear if the patient has been compliant. If he has been compliant would be concerned regarding potential clonidine withdrawal. - Continue Clonidine 0.2mg BID for now, however, patient refused meds from time to time. BP ranged from 130-160s. - May reevaluate if patient to be discharged on this meds. If not, will taper per DC planning. - Dr. Salas's record had no recent Keppra use on latest visit, possibly due to patient's incompliant. - Consider alternative anti-hypertensive as needed. DVT PPX Lovenox + ALPS regular diet Full Code Assessment/Plan Assessment: Mr. Jiang is a 72 yo male with h/o ?seizures (?alcohol related), HTN, and EtoH abuse who was BIBA to [facility] after a witnessed seizure event at home by , with uncertainty of last drink as patietn was a poor historian. However, alcohol level had been negative on admission. Patient denied headache, chest pain, dyspnea, abdominal pain on admission. Patient was admitted to [facility] in 01/2017 for similar seizure event and was sent home on Keppra. ER Course: VS: T 98.3, P 106-76, R 15, BP 189/93-151/77, PO 98% RA Physical exam unremarkable except Neuro: poor historian, oriented to place, no focal neuro deficits, however gait unsteady when attempting to ambulate to bathroom. Patient was admitted to general medicine for following management: #S/P Seizure likely complex partial PCP is Dr. Salas. Patient had left AMA from last admission, questionably compliance with Keppra after last discharge. - Continued Keppra 500mg bid. Will bridge with Depakote 500mg BID and recheck Depakote level in 10 days, if range within therapeutical range, will discontinue Keppra as it has potential to cause mental instablity. - Continue Seroquel 50mg BID per Psych. 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 Patient rejected IV access. - Will continue the PO regimen. - Neuro f.u recommended TSH and Ammonia, which were WNL. - EEG was limited study due to patient's combative behavior. however, No evident epileptiform abnormalities. If clinical suspicion of seizures is high a repeat recording with sedation should be considered. - Repeat EEG 07/23 showed: Abnormal EEG due to mild generalized slowing of the background rhythm consistent with diffuse cerebral dysfunction. No focal or epileptiform features were identified. - Repeat MRI 07/23 showed: Stable MR appearance of the brain, again demonstrating moderate to severe chronic small vessel ischemic changes and left sided mesial temporal sclerosis. - Fall/Seizure precautions. - continue to monitor - discharge planning - No change, pending placement #EtOH-related dementia/delirum- unclear amount of alcohol the patient drinks prior this admission. ED indicated that he had been drinking, however could not recall his last drink. - Patient's mental status had not changed much upon admission, and is not a candidate of safe discharge. The best discharge disposition would be geriatric/ psych unit however insurance issue as below may have hindered the process. Patient is not a candidate for STR with underlying mental instability/delirium. - Continue CIWA's protocol - Completed Ativan taper. - Continue MVI, Folate, Thiamine protocol. - Pending insurance consult for to get Medicare Part B application. - No ativan PRN overnight #HTN- With patient's current mental status, clonidine incompliance and possible clonidine withdrawal could not be unclear why patient is listed as being on Clonidine for BP control. Also unclear if the patient has been compliant. If he has been compliant would be concerned regarding potential clonidine withdrawal. - Continue Clonidine 0.2mg BID for now, however, patient refused meds from time to time. BP ranged from 130-160s. - May reevaluate if patient to be discharged on this meds. If not, will taper per DC planning. - Dr. Salas's record had no recent Keppra use on latest visit, possibly due to patient's incompliant. - Consider alternative anti-hypertensive as needed. DVT PPX Lovenox + ALPS regular diet Full Code Problem List: 1. Seizure 2. Altered mental status Pain Ratin Pain Location: None Pain Goal: Pain 4 or less Pain Plan: Conitnue current plan Tomorrow's Labs & Rationales: None Ceci Stafford 07/27/17 1611: Attending MD Review Statement Attending Statement Attending MD Statement: examined this patient, discuss w/resident/PA/CARD CUTTER HELPER, agreed w/resident/PA/CARD CUTTER HELPER, reviewed EMR data (avail), discussed with nursing Attending Assessment/Plan: Agree with the assessment and plan. Will repeat BEP today and f/u on results to make sure creatinine is stable.
[2017-07-27 15:31] VITALS: BP 130/68
[2017-07-27 21:00] VITALS: BP 130/80
[2017-07-28] VITALS: BP 130/80; BP 132/82
[2017-07-28 04:00] VITALS: BP 132/82
[2017-07-28 07:06] VITALS: BP 118/68
--- NOTE | 2017-07-28 07:40 | PN- Housestaff ---
DonaldLakshmi Fletcher Young 07/28/17 0740: Subjective Follow-up For: Vascular Dementia? Partial Complex seizure disorde Subjective: No overnight event. Patient refused examination. Review of Systems Constitutional: Reports: see HPI. Objective Last 24 Hrs of Vital Signs/I&O Vital Signs Date Time Temp Pulse Resp B/P B/P Pulse O2 O2 Flow FiO2 Mean Ox Delivery Rate 07/28 1007 98 140/86 07/28 0706 97.8 88 18 118/68 96 07/28 0400 98.4 80 18 132/82 07/28 0000 97.7 108 18 130/80 07/28 0000 98.4 80 18 132/82 97 07/27 2147 108 18 130/80 07/27 2100 97.7 108 18 130/80 93 Room Air 07/27 1531 98.2 100 20 130/68 96 Room Air Intake & Output 07/28 1600 07/28 0800 07/28 0000 Intake Total 200 1010 Output Total 900 Balance 200 110 Intake, IV 10 Intake, Oral 200 1000 Number 0 Bowel Movements Output, Urine 900 Physical Exam General Appearance: Pt refused examination Current Medications: Current Medications Sig/Jessica Start time Last Medication Dose Route Stop Time Status Admin Acetaminophen 650 MG Q6P PRN 07/13 1345 AC 07/13 PO 2119 Clonidine 0.2 MG BID 07/13 2200 AC 07/28 PO 1007 Divalproex Sodium 500 MG BID 07/24 2200 AC 07/28 PO 1006 Enoxaparin Sodium 40 MG DAILY 07/13 1348 AC 07/28 SC 1007 Famotidine 20 MG DAILY 07/14 1000 AC 07/28 PO 1007 Folic Acid 1 MG DAILY 07/14 1000 AC 07/28 PO 1007 Levetiracetam 500 MG BID 07/13 2200 AC 07/28 PO 1007 Lorazepam 0 Q1P PRN 07/20 1515 DC IV Multivitamins 1 TAB DAILY 07/14 1000 AC 07/28 PO 1007 Quetiapine Fumarate 50 MG BID 07/14 1000 AC 07/28 PO 1007 Thiamine HCl 100 MG DAILY 07/26 1145 AC 07/28 PO 1007 Thiamine HCl 500 MG TID 07/25 1600 DC 07/26 Sodium Chloride 250 ML IV 07/27 2301 2208 Last 24 Hrs of Lab/Cecilio Results Last 24 Hrs of Labs/Mics: Laboratory Tests 07/27/17 1857: Anion Gap 12, Estimated GFR > 60, BUN/Creatinine Ratio 15.6 Assessment/Plan Assessment: Mr. Jiang is a 72 yo male with h/o ?seizures (?alcohol related), HTN, and EtoH abuse who was BIBA to [facility] after a witnessed seizure event at home by , with uncertainty of last drink as patietn was a poor historian. However, alcohol level had been negative on admission. Patient denied headache, chest pain, dyspnea, abdominal pain on admission. Patient was admitted to [facility] [place] in 01/2017 for similar seizure event and was sent home on Keppra. ER Course: VS: T 98.3, P 106-76, R 15, BP 189/93-151/77, PO 98% RA Physical exam unremarkable except Neuro: poor historian, oriented to place, no focal neuro deficits, however gait unsteady when attempting to ambulate to bathroom. Patient was admitted to general medicine for following management: #S/P Seizure likely complex partial PCP is Dr. Salas. Patient had left AMA from last admission, questionably compliance with Keppra after last discharge. - Continued Keppra 500mg bid. Will bridge with Depakote 500mg BID and recheck Depakote level in 10 days, if range within therapeutical range, will discontinue Keppra as it has potential to cause mental instablity. - Continue Seroquel 50mg BID per Psych. 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 - Will continue the PO regimen. - Neuro f.u recommended TSH and Ammonia, which were WNL. - EEG was limited study due to patient's combative behavior. however, No evident epileptiform abnormalities. If clinical suspicion of seizures is high a repeat recording with sedation should be considered. - Repeat EEG 07/23 showed: Abnormal EEG due to mild generalized slowing of the background rhythm consistent with diffuse cerebral dysfunction. No focal or epileptiform features were identified. - Repeat MRI 07/23 showed: Stable MR appearance of the brain, again demonstrating moderate to severe chronic small vessel ischemic changes and left sided mesial temporal sclerosis. - Fall/Seizure precautions. - continue to monitor - discharge planning, discussed with CM, that [facility] may accept the patient for [facility]psych beds. Pending PEC from psych evaluation, and will inform regarding the desicion. #EtOH-related dementia/delirum- unclear amount of alcohol the patient drinks prior this admission. ED indicated that he had been drinking, however could not recall his last drink. - Patient's mental status had not changed much upon admission, and is not a candidate of safe discharge. The best discharge disposition would be geriatric/ psych unit however insurance issue as below may have hindered the process. Patient is not a candidate for STR with underlying mental instability/delirium. - Continue CIWA's protocol - Completed Ativan taper. - Continue MVI, Folate, Thiamine protocol. - Pending insurance consult for to get Medicare Part B application. - No ativan PRN overnight #HTN- With patient's current mental status, clonidine incompliance and possible clonidine withdrawal could not be unclear why patient is listed as being on Clonidine for BP control. Also unclear if the patient has been compliant. If he has been compliant would be concerned regarding potential clonidine withdrawal. - Continue Clonidine 0.2mg BID for now, however, patient refused meds from time to time. BP ranged from 130-160s. - May reevaluate if patient to be discharged on this meds. If not, will taper per DC planning. - Dr. Salas's record had no recent Keppra use on latest visit, possibly due to patient's incompliant. - Consider alternative anti-hypertensive as needed. DVT PPX Lovenox + ALPS regular diet Full Code Problem List: 1. Altered mental status 2. Abnormal EEG Pain Ratin Pain Location: NA Pain Goal: Remain pain free Pain Plan: see AP Tomorrow's Labs & Rationales: Jonah Mitchell 07/28/17 1301: Attending MD Review Statement Attending Statement Attending MD Statement: examined this patient, discuss w/resident/PA/HEAD SCHOOL CUSTODIAN, agreed w/resident/PA/HEAD SCHOOL CUSTODIAN, discussed with family, reviewed EMR data (avail), discussed with nursing, discussed with case mgmt, reviewed images, amended to note Attending Assessment/Plan: Patient is admitted with acute encephalopathy related to seizure disorder likely complex partial seizure and medial temporal lobe sclerosis. Neurology appreciated and initially recommend to continue keppra for complex partial seziures based on previous MRI findings and hippocampal involvement and now recommended to change to depakote. Check valproate levels as per neuro. EEG and MRI as per neurology suugestive medial temoporal lobe sclerosis. He is aaox 2, orinted to place and self, walking with PT. Patient needs to follow up neurology as outpatient. SW f/u. placement possible [facility]-pys[facility] unit. (dementia alcohol related, seizures + behavioural disturbacnes)
[2017-07-28] MEDS ORDERED: DIVALPROEX SOD500 M2 PO (14:41)
--- NOTE | 2017-07-28 14:43 | Patient Discharge Instructions ---
Discharge Instructions General Discharge Information You were seen/treated for: ALTERED MENTAL STATUS, COMPLEX PARTIAL SEIZURE, MEDIAL TEMPORAL LOBE SCLEROSIS , ?VASCULAR DEMENTIA. Special Instructions: - Please continue Keppra 500mg twice daily and Depakote 500mg twice daily. Please recheck Depakote level on 08/03/2017, if range within therapeutical range, you will be discontinued Keppra as it has potential to cause mental instablity. - Please follow up with your primary care physician within 1-2 weeks of discharge. Inform your primary care physician of this admission to [facility]. - Continue your current medications per discharge instructions. - Please watch for these problems: Fever, Chills, Nausea, Vomiting, Shortness of Breath, Productive Cough, Chest Pain/Discomfort, Abdominal Pain, Active Bleeding or Bloody urine/stool. Diet Continue normal diet: Yes Recommended Diet: Heart Healthy Activity Full Activity/No Limits: Yes Acute Coronary Syndrome Inclusion Criteria At DC or during hospital stay patient has or had the following: ACS DIAGNOSIS No Discharge Core Measures Meds if any: Prescribed or Continued at Discharge Meds if any: NOT Prescribed or Continued at Discharge Congestive Heart Failure Inclusion Criteria At DC or during hospital stay patient has or had the following: CHF DIAGNOSIS No Discharge Core Measures Meds if any: Prescribed or Continued at Discharge Meds if any: NOT Prescribed or Continued at Discharge Cerebrovascular accident Inclusion Criteria At DC or during hospital stay patient has or had the following: CVA/TIA Diagnosis No Discharge Core Measures Meds if any: Prescribed or Continued at Discharge Meds if any: NOT Prescribed or Continued at Discharge Venous thromboembolism Inclusion Criteria VTE Diagnosis No VTE Type NONE VTE Confirmed by (Test) NONE Discharge Core Measures - Per Current guidelines, there needs to be overlap - treatment for the first 5 days of Warfarin therapy. - If discharged on Warfarin prior to 5 days of - overlap therapy, the patient will need to be - assessed for post discharge needs including - *Post discharge parental anticoagulation - *Warfarin and/or parental anticoagulation education - *Follow up date to check INR post discharge At least 5 days overlap therapy as Inpatient No Meds if any: Prescribed or Continued at Discharge Note: Overlap Therapy is Warfarin and Anticoagulant Meds if any: NOT Prescribed or Continued at Discharge
[2017-07-28 15:01] VITALS: BP 100/56
--- NOTE | 2017-07-28 15:07 | Discharge Summary ---
Visit Information Visit Dates Admission Date: 07/13/17 Discharge Date: 07/28/17 Hospital Course Course Attending Physician: Jonah Monge MD Primary Care Physician: Lalo Salas MD Hospital Course: Mr. Jiang is a 72 yo male with h/o ?seizures (?alcohol related), HTN, and EtoH abuse who was BIBA to [facility] after a witnessed seizure event at home by , with uncertainty of last drink as the patient is a poor historian. However, alcohol level had been negative on admission. Patient denied headache, chest pain, dyspnea, abdominal pain on admission. Patient was admitted to [facility] in 01/2017 for similar seizure event and was sent home on Keppra. ER Course: VS: T 98.3, P 106-76, R 15, BP 189/93-151/77, PO 98% RA Physical exam unremarkable except Neuro exam as: poor historian, oriented to place only, no focal neuro deficits, however gait unsteady when attempting to ambulate. Patient was admitted to general medicine for following management: #Partial complex seizure, temporal lobe sclerosis, ?vascular dementia. Patient had left AGAINST MEDICAL ADVICE from last admission, questionable compliance with Keppra after last discharge. Patient was continued with Keppra 500mg bid initially, and after neurology consultation, and given his behavioral changes, is currently being bridged with Depakote 500mg BID. Depakote level has to be checked in 10 days, if range within therapeutical range, will discontinue Keppra. Patient had a prolonged course of altered mental status, confusion mixed with agitation and behavioral changes, which could partially be explained as a post ictal state from partial complex seizure, more temporal lobe sclerosis. His long-standing hypertension along with forgetfulness could be partially explained by vascular dementia, although these diagnoses were thought of only during this admission, and requires further follow-up with neurology service. In the meantime, we recommend to continue Seroquel 50 mg twice a day, thiamine. He would be an ideal candidate for geriatric psychiatry service as well. #EtOH-related dementia/delirum- Unclear about the amount of alcohol the patient drinks prior this admission as he once mentioned to the psychiatry service that he drinks beer without his 's knowledge but clearly denied it in front of his , and his also mentioned that he does not have access to alcohol. In the ED, he indicated that he had been drinking, however could not recall his last drink. Patient was much agitated, showed signs of withdrawal, including delirium, and was put on CIWA protocol, slowly tapering the dose of benzodiazepines, while continuing multivitamin, folate, thiamine. Psychiatry service was involved, who suggested the course of withdrawal management. Ideally, he should be following up with psychiatry service as an outpatient basis as well. #HTN- patient takes only clonidine for his blood pressure management at home, questionable if he was compliant with it, but clearly had hypertensive episodes in the hospital, possibly when he was withdrawing. He needs to follow-up with his primary care physician regarding his blood pressure medications after discharge. This medication ideally is tapered off residence stopped abruptly. DVT ppx: SQ Lovenox + ALPS Diet: Regular diet Code status: Full Code Allergies: Coded Allergies: No Known Allergies (07/13/17) Significant Procedures: EEG 07/23 showed: Abnormal EEG due to mild generalized slowing of the background rhythm consistent with diffuse cerebral dysfunction. No focal or epileptiform features were identified. MRI 07/23 showed: Stable MR appearance of the brain, again demonstrating moderate to severe chronic small vessel ischemic changes and left sided mesial temporal sclerosis. Pertinent Lab Results: Laboratory Tests 07/27 1857 Chemistry Sodium (137 - 145 mmol/L) 145 Potassium (3.5 - 5.1 mmol/L) 4.0 Chloride (98 - 107 mmol/L) 106 Carbon Dioxide (22 - 30 mmol/L) 26 Anion Gap (5 - 16) 12 BUN (9 - 20 mg/dL) 14 Creatinine (0.7 - 1.2 mg/dL) 0.9 Estimated GFR (>60 ml/min) > 60 BUN/Creatinine Ratio (7 - 25 %) 15.6 Disposition Summary Disposition Principal Diagnosis: Partial complex seizure, temporal lobe sclerosis, ?vascular dementia. Additional Diagnosis: ?seizures (?alcohol related), HTN, and EtoH abuse Discharge Disposition: SNF Discharge Instructions General Discharge Information Code Status: Full Code Patient's Diet: Regular diet Patient's Activity: As tolerated Follow-Up Instructions/Appts: - Please continue Keppra 500mg twice daily and Depakote 500mg twice daily. Please recheck Depakote level on 08/03/2017, if range within therapeutical range, you will be discontinued Keppra as it has potential to cause mental instablity. - Please follow up with your primary care physician within 1-2 weeks of discharge. Inform your primary care physician of this admission and also regarding high blood pressure to [facility]. - Continue your current medications per discharge instructions. - Please watch for these problems: Fever, Chills, Nausea, Vomiting, Shortness of Breath, Productive Cough, Chest Pain/Discomfort, Abdominal Pain, Active Bleeding or Bloody urine/stool. Medications at Discharge Discharge Medications: Continue taking these medications: Quetiapine Fumarate (Seroquel) 50 MG TABLET 1 Tablet ORAL TWICE DAILY Comments: Last Taken: 07/28/17 Time: 10:07 AM Magnesium Oxide (Magnesium) 400 MG CAPSULE 1 Capsule ORAL DAILY Comments: NOT GIVEN IN HOSPITAL Melatonin (Melatonin) 3 MG TABLET 1 Tablet ORAL Every night Comments: NOT GIVEN IN HOSPITAL [TUMS] 1 Tablet ORAL TWICE DAILY Clonidine (Catapres) 0.2 MG TABLET 0.2 Milligram ORAL TWICE DAILY Qty = 60 Comments: Last Taken: 07/28/17 Time: 10:07 AM Levetiracetam (Keppra) 500 MG TABLET 1 Tablet ORAL TWICE DAILY Qty = 60 Instructions: .. Comments: Last Taken:07/28/17 Time:10:07 AM Famotidine (Pepcid AC) 10 MG TABLET Comments: Last Taken:07/28/17 Time:10:07 AM Start taking the following new medications: Divalproex Sodium (Divalproex Sodium) 500 MG TABLET.DR 500 Milligram ORAL TWICE DAILY Qty = 60 No Refills Instructions: Continued Keppra 500mg bid. Will bridge with Depakote 500mg BID and recheck Depakote level on 08/03/2017, if range within therapeutical range, will discontinue Keppra as it has potential to cause mental instablity. Comments: Last Taken:07/28/17 Time:10:06 AM Folic Acid (Folic Acid) 1 MG TABLET 1 Milligram ORAL DAILY Qty = 30 Refills = 1 Comments: Last Taken:07/28/17 Time:10:07 AM Thiamine HCl (Vitamin B-1) 100 MG TABLET 1 Tablet ORAL DAILY Qty = 30 Refills = 1 Comments: Last Taken:07/28/17 Time:10:07 AM Multivitamin (One Daily Multivitamin) 1 EACH TABLET 1 Tablet ORAL DAILY Qty = 30 Refills = 1 Comments: Last Taken:07/28/17 Time:10:07 AM Copies To: Josue PAN,Lalo Alvarenga; Homero PAN,Carol Jean Attending MD Review Statement Documenting Attending: Mariposa PAN,Jonah Other Findings: Patient is admitted with acute encephalopathy related to seizure disorder likely complex partial seizure and medial temporal lobe sclerosis. Neurology appreciated and initially recommend to continue keppra for complex partial seziures based on previous MRI findings and hippocampal involvement and now recommended to change to depakote. Check valproate levels as per neuro. EEG and MRI as per neurology suugestive medial temoporal lobe sclerosis. He is aaox 2, orinted to place and self, walking with PT. Patient needs to follow up neurology as outpatient. SW f/u. placement possible [facility]-pysch unit. (dementia alcohol related, seizures + behavioural disturbacnes)
--- NOTE | 2017-07-28 15:47 | PN- Psychiatry ---
Assessment/Plan Impression: The patient agreed to allow an IV to be placed over the weekend, having pulled the previous one out last week. He did not receive the complete high dose thiamine regimen, but received 5 doses of 250 mg over two days. He is much more agreeable today, but remains confused. We recommend geriatric psychiatry to stabilize the patient on medications. Suggestion: 1. Continue to discourage the patient from drinking alcohol. 2. Continue thiamine as an outpatient. 3. The patient reports poor appetite. He may not be able to taste his food, and has little hunger. Consider nutritional consult. Psychiatry is signing off. Thank you for this consult. Subjective Subjective: The patient was sleeping, but easily aroused. He is calm, speaking loudly and reminding this pattern chart writer that he is hard of hearing. He is oriented to person, date and month, knows he is in a hospital and that he is in [place]. He reports the year is "81," but does not know the day of the week. He denies AH or VH and presents no monty delusions at this meeting. He denies suicidal or homicidal ideation, but is vague about passive suicidality. He occasionally answers a question different than the one asked. When asked if he is depressed, he states that he would like to outlive his mother, and if he has to have something, lets get it over with. Approximately 75% of his answers are direct, the balance are tangential. He is showing improvement in mentation and behavior since our last visit on 07/25/17. Insight and judgement remain poor. He would like to get home to his two cats and his bird. Review of Systems Neurological/Psychological: Denies: anxiety. Objective Last 24 Hrs of Vital Signs/I&O Vital Signs Date Time Temp Pulse Resp B/P B/P Pulse O2 O2 Flow FiO2 Mean Ox Delivery Rate 07/28 1501 97.3 94 20 100/56 94 Room Air 07/28 1007 98 140/86 07/28 0706 97.8 88 18 118/68 96 07/28 0400 98.4 80 18 132/82 07/28 0000 97.7 108 18 130/80 07/28 0000 98.4 80 18 132/82 97 07/27 2147 108 18 130/80 07/27 2100 97.7 108 18 130/80 93 Room Air Intake & Output 07/28 1600 07/28 0800 07/28 0000 Intake Total 200 1010 Output Total 900 Balance 200 110 Intake, IV 10 Intake, Oral 200 1000 Number 0 Bowel Movements Output, Urine 900 Physical Exam: Not performed Physical Exam General Appearance: no apparent distress, alert, awake, comfortable Neurologic/Psychiatric: awake, alert Current Medications: Current Medications Sig/Jessica Start time Last Medication Dose Route Stop Time Status Admin Acetaminophen 650 MG Q6P PRN 07/13 1345 AC 07/13 PO 2119 Clonidine 0.2 MG BID 07/13 2199 AC 07/28 PO 1007 Divalproex Sodium 500 MG BID 07/24 2200 AC 07/28 PO 1006 Enoxaparin Sodium 40 MG DAILY 07/13 1348 AC 07/28 SC 1007 Famotidine 20 MG DAILY 07/14 1000 AC 07/28 PO 1007 Folic Acid 1 MG DAILY 07/14 1000 AC 07/28 PO 1007 Levetiracetam 500 MG BID 07/13 220 AC 07/28 PO 1007 Multivitamins 1 TAB DAILY 07/14 1000 AC 07/28 PO 1007 Quetiapine Fumarate 50 MG BID 07/14 1000 AC 07/28 PO 1007 Thiamine HCl 100 MG DAILY 07/26 1145 AC 07/28 PO 1007 Results Last 24 Hrs of Labs/Mics: Laboratory Tests 07/27 1857 Chemistry Sodium (137 - 145 mmol/L) 145 Potassium (3.5 - 5.1 mmol/L) 4.0 Chloride (98 - 107 mmol/L) 106 Carbon Dioxide (22 - 30 mmol/L) 26 Anion Gap (5 - 16) 12 BUN (9 - 20 mg/dL) 14 Creatinine (0.7 - 1.2 mg/dL) 0.9 Estimated GFR (>60 ml/min) > 60 BUN/Creatinine Ratio (7 - 25 %) 15.6
[2017-07-28] MEDS ORDERED: FOLIC ACID1 M1 PO (17:20)
[2017-07-28] MEDS ORDERED: VITAMIN B-1100 MG PO (17:20)
[2017-07-28] MEDS ORDERED: ONE DAILY MULT1 EAC2 PO (17:20)
[2017-07-28 17:28] VITALS: BP 100/56
== END 2017-07-28 17:35 | disposition other institution (70) | DRG 100 ==
LOC: ERH 07:47 → 2NB 10:38 → ERHI 10:38 → ENRESERV 11:47 → ENTRNSPT 12:42 → EDTRNSPTSTS 13:20 → EDTRNSPT 13:20 → 2NB 13:26 → CMPTRNSPT 13:57 → 2NB 07-14 07:45
PROVIDERS: Emergency Medicine; Student in an Organized Health Care Education/Training Program
DX: G40.209 Localization-related (focal) (partial) symptomatic epilepsy and epileptic syndromes with complex partial seizures, not intractable, without status epilepticus (principal); G93.49 Other encephalopathy; E87.2 Acidosis; F10.27 Alcohol dependence with alcohol-induced persisting dementia; F10.288 Alcohol dependence with other alcohol-induced disorder; F10.239 Alcohol dependence with withdrawal, unspecified; I10 Essential (primary) hypertension; Y90.0 Blood alcohol level of less than 20 mg/100 ml; Z91.14 Patient's other noncompliance with medication regimen; H91.90 Unspecified hearing loss, unspecified ear; F04 Amnestic disorder due to known physiological condition; R00.0 Tachycardia, unspecified
CPT/HCPCS: 2NBP; 70551; 36415; 36592; 71045; 80307; 81003; 82436; 87040; 93005; 93010; 95816; 96361; 96374; 96375; 99232; 99233; G0480; J1650; J1953; J2060; J3490; J7040; J7042; J7060